=== PATIENT | female | born 2000 | race Caucasian/White ===

== ENCOUNTER 2025-07-02 14:39 | Inpatient (IN) | payer MEDICAID, SELFPAY ==
[2025-07-02 15:01] VITALS: BP 130/65; PULSE 90; RESP 16; TEMP 36.8; O2SAT 98
--- OUTSIDE RECORDS SUMMARY | 2025-07-02 15:16 | XMS_ITS | Clinical Summary ---
Author Organization [facility] Address [address] [place] [address] Phone Care Team Providers Care Lead Rider Name Role Phone Ysabel Angelo NP Primary Care Provider [phone] Allergies Active Allergy Reactions Criticality Noted Date Comments Hydroxyzine Unknown Medium 04/05/2021 Other Reaction(s): Unknown/Patient and Family Unable to Define Heartburn, discomfort Heartburn, discomfort [place] Medium 06/13/2020 Other Reaction(s): Dyskinesia/Dystonia Lurasidone Medium 06/13/2020 Other Reaction(s): Dyskinesia/Dystonia Quetiapine Unknown Medium 11/10/2023 Risperidone Unknown Medium 12/24/2023 Medications cariprazine (Vraylar) 1.5 mg capsule Active traZODone (DESYREL) 100 mg tablet Take 1 tablet (100 mg total) by mouth once daily as needed. 07/10/2024 Active buPROPion XL (WELLBUTRIN XL) 150 mg 24 hr tablet Take 1 tablet (150 mg total) by mouth 1 (one) time each day in the morning. 02/23/2024 Active cholecalciferol (VITAMIN D-3) 1,250 mcg (50,000 unit) capsule TAKE 1 CAPSULE BY MOUTH 1 TIME A WEEK Active EPINEPHrine (EPIPEN) 0.3 mg/0.3 mL injection Active folic acid (FOLVITE) 1 mg tablet Take 1 tablet (1,000 mcg total) by mouth 1 (one) time each day. Active propranoloL (INDERAL) 10 mg tablet Active glecaprevir-pib rentasvir 100-40 mg tablet Take 3 tablets by mouth 1 (one) time each day. 168 tablet 04/12/2025 06/07/20 25 Active Problems Problem Noted Date Diagnosed Date Depression 12/10/2024 Assessment & Plan (12/10/2024 12:34 PM EST): Ceci was counseled on therapy and medication options. She expressed concerns about having to wait to get into behavioral health treatment. We discussed following up with [facility] in [place] for walk-in Behavioral Health access. She is agreeable to follow up with [facility]. She is reluctant to start medication until establishing care for mental health. She states that medication in the past has significantly affected her but remains open to starting on something new with behavioral health. Orders: Ambulatory referral to Behavioral Health; Future Alcohol abuse 12/10/2024 Encounters Date Type Department Care Team Description 05/17/2025 Telephone Infectious Disease - [facility] [address] [place] [address] Jessie Bedoya MA from Last 3 Months Immunizations Name Administration Dates Next Due DTaP (Infanrix) 6wks to less than 7yo ,01/12/2002,04/07/2001,2000,2000 H1N1 All Forms 11/14/2009 Hep B, Unspecified 05/29/2001,2000, 000 Hepatitis A Pediatric (Havri x; Vaqta) 12mo to less than 19yo 11/14/2009 Hib (HbOC) 01/12/2002, 1,01/27/2001,2000 IPV Inactivated polio (Ipol) 6wks and older 10/06/2004,10/02/2001,01/27/2001,2000 Influenza trivalent, with preservative (Fluzone; Afluria) 6mo and older 11/08/2006 MMR, measles mumps and rubel la Live (Priorix; M-M-R II) 12mo and older 10/06/2004,01/12/2002 PPD Test 07/06/2024,12/26/2023,11/10/2023 Pneumococcal Conjugate Vacci ne, 7 Valent 01/12/2002,04/07/2001,01/27/2001,2000 Tdap Tetanus diptheria acell ular pertussis (Boostrix; Adacel) 7yo and older 03/19/2022 Varicella live (Varivax) 12m o and older 11/14/2009,10/02/2001 Family History Medical History Relation Name Comments Bipolar disorder Sister Relation Name Status Comments Sister Social History Tobacco Use Types Packs/Day Years Used Date Smoking Tobacco: Every Day Cigarettes Tobacco Cessation:Ready to Q uit: Not Asked; Counseling Given: Not Answered Alcohol Use Standard Drinks/Week Comments Yes 3 (1 standard drink = 0.6 oz pur e alcohol) Rum Comments Unknown Sex and Gender Information Value Date Recorded Sex Assigned at Not on file Legal Sex Female 2:09 PM EST Gender Identity Not on file Sexual Orientation Not on file Obstetrics History Last Filed Vital Signs Vital Sign Reading Time Taken Comments Blood Pressure 120/80 03/08/2025 10:16 AM EDT Pulse 104 03/08/2025 10:16 AM EDT Temperature 36.1 C (97 F) 03/08/2025 10:16 AM EDT Respiratory Rate 16 03/08/2025 10:16 AM EDT Oxygen Saturation 98% 03/08/2025 10:16 AM EDT Inhaled Oxygen Concentration - - Weight 68.8 kg (151 lb 9.6 oz) 01/10/2025 10:52 AM EST Height 162.6 cm (5' 4 ) 01/10/2025 10:52 AM EST Body Mass Index 26.02 01/10/2025 10:52 AM EST Plan of Treatment Health Maintenance Due Date Last Done Comments Pneumococcal Vaccine: Pediatrics (0 to 5 Years) and At-Risk Patients (6 to 49 Years) (1 of 1 - PPSV23) 2006 01/12/2002, 04/07/2001, 01/27/2001, Additional history exists Hepatitis A Vaccines (2 of 2 - Risk 2-dose series) 05/15/2010 11/14/2009 HPV Vaccines (1 - 3-dose series) 2015 Cervical Cancer Screening: Pap Smear 2021 Gonorrhea/Chlamydia Screening 02/08/2023 02/08/2022 COVID-19 Vaccine ( season) 2024 Social Influencers of Health Screening 12/03/2024 Cholesterol Screening (Lipid Panel) 01/10/2030 01/10/2025, 12/14/2024 DTaP,Tdap,and Td Vaccines (7 - Td or Tdap) 03/19/2032 03/19/2022, 10/06/2004, 01/12/2002, Additional history exists Hepatitis B Vaccines Completed 05/29/2001, 2000, 2000 HIB Vaccines Completed 01/12/2002, 03/28, 01/27/2001, Additional history exists IPV Vaccines Completed 10/06/2004, 03/2001, 01/27/2001, Additional history exists MMR Vaccines Completed 10/06/2004, 01/12/2002 Influenza Vaccine Discontinued 11/14/2009, 11/08/2006 Varicella Vaccines Completed 11/14/2009, 10/02/2001 Depression Screening Completed 12/03/2024 HIV Screening Completed 03/08/2025, 12/28/2023 Hepatitis C Screening Completed 03/08/2025 , 03/08/2025, 01/10/2025, Additional history exists Meningococcal ACWY Vaccine Aged Out N o longer eligible based on patient's age to complete this topic Meningococcal B Vaccine Aged Out No l onger eligible based on patient's age to complete this topic RSV Immunization Patients Under 20 months Aged Out No longer eligible based on patient's age to complete this topic Procedures Procedure Name Priority Date/Time Associated Diagnosis Comments HEPATITIS C VIRUS QUANTITATIVE PCR Routine 03/08/2025 10:46 AM EDT Chronic hepatitis C without hepatic coma (CMS/HCC V24, CMS/HCC V28) HIV 1, 2 ANTIBODY, P24 ANTIGEN WITH REFLEX TO DIFFERENTIATION Routine 03/08/2025 10:46 AM EDT Chronic hepatitis C without hepatic coma (CMS/HCC V24, CMS/HCC V28) LIPID PANEL Routine 01/10/2025 11:17 AM EST Elevated lipids from Last 3 Months or Most Recently Relevant to Health Maintenance Results * HIV 1,2 antibody, p24 antigen with reflex to differentiation (03/08/2025 10:46 AM EDT) HIV Combo AB/AG Negative Negative LAB CHEMISTRY METHOD 03/08/2025 10:48 PM EDT [facility] Blood Venous blood specimen / Unknown Venipuncture / Unknown 03/08/2025 10:46 AM EDT 03/08/2025 4:12 PM EDT Narrative [facility] - 03/08/2025 10:48 PM EDT Nonreactive result does not rule out HIV infection. us Omid Cesar MD LAB BLOOD ORDERABLES Final Resu lt [facility] [address] [place] [address], [place] [phone] * (ABNORMAL) Hepatitis C virus quantitative molecular study (03/08/2025 10:46 AM EDT) Hepatitis C Virus RNA Qualitative DETECTED( A) Not detected IU/mL 03/11/2025 1:02 PM EDT [facility] Hepatitis C Virus RNA Quantitative 544,072(H ) <12 IU/mL 03/11/2025 1:02 PM EDT [facility] Log Hepatitis C Virus RNA 5.74(H) <1.08 Log (10) IU/mL 03/11/2025 1:02 PM EDT [facility] Comment: This procedure utilizes a real-time polymerase chain reaction test from [employer]. The amplification target is a conserved region of the HCV genome. The lower limit of quantitation is 12 IU/mL (1.08 Log IU/mL) and the upper limit of quantitation is 100 million IU/mL (8.00 Log IU/mL). The qualitative limit of detection is 12 IU/mL (1.08 Log IU/mL). Specimens reported as DETECTED but <12 IU/mL contain detectable levels of hepatitis C RNA but the viral load is below the limit of quantitation. A Not detected result does not rule out infection. Test performed at [facility], [address] , [place] [address] Tish Murphy MD, PhD - [employer] Blood Venous blood specimen / Unknown Venipuncture / Unknown 03/08/2025 10:46 AM EDT 03/08/2025 11:37 AM EDT us Omid Cesar MD LAB BLOOD ORDERABLES Final Resu lt [facility] [address] [place] [address] * (ABNORMAL) Lipid panel (01/10/2025 11:17 AM EST) [facility] Cholesterol 182 0 - 200 mg/dL LAB CHEMISTRY METHOD 01/10/2025 2:06 PM EST [facility] Triglycerides 156(H) <150 mg/dL LAB CHEMISTRY METHOD 01/10/2025 2:06 PM EST [facility] HDL 38 35 - 80 mg/dL LAB CHEMISTRY METHOD 01/10/2025 2:06 PM EST [facility] LDL Calculated 113 50 - 130 mg/dL LAB CHEMISTRY METHOD 01/10/2025 2:06 PM EST [facility] VLDL Cholesterol Negro 31.2 mg/dL LAB CHEMISTRY METHOD 01/10/2025 2:06 PM EST [facility] Comment:No established refer ence range. Blood Venous blood specimen / Unknown Venipuncture / Unknown 01/10/2025 11:17 AM EST 01/10/2025 11:17 AM EST us Ysabel Angelo NP LAB BLOOD ORDERABLES Final Result [facility] [address] [place] [address], [place] [phone] from Last 3 Months or Most Recently Relevant to Health Maintenance Insurance [place] Care Teams Lead Rider Relationship Specialty Start Date End Date Ysabel Angelo NP [address] [facility] [address] [place] [address] PCP - General 12/10/24
--- OUTSIDE RECORDS SUMMARY | 2025-07-02 15:16 | XMS_ITS | Clinical Summary ---
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 MARCOS URINE ORDERABLES Final Result [facility] [address] [place] [address], [facility] [address] [place] [address] * Complete Blood Count, with Differential (06/13/2025 4:46 PM EDT) Only the most recent of2 resultswithin the time period is included. [facility] White Blood Cell Count 8.8 4.0 - 11.0 Thou/uL 06/13/2025 4:54 PM EDT [facility] Platelet Count 234 150 - 450 Thou/uL 06/13/2025 4:54 PM EDT [facility] Hemoglobin 13.6 11.7 - 15.7 g/dL 06/13/2025 4:54 PM EDT [facility] Hematocrit 40.2 35.0 - 47.0 % 06/13/2025 4:54 PM EDT [facility] Red Blood Cell Count 4.45 4.00 - 5.40 Mil/uL 06/13/2025 4:54 PM EDT [facility] MCV 90 80 - 100 fL 06/13/2025 4:54 PM EDT [facility] MCH 30.6 26.0 - 34.0 pg 06/13/2025 4:54 PM EDT [facility] MCHC 33.8 30.0 - 36.0 g/dL 06/13/2025 4:54 PM EDT [facility] RDW 13.2 11.5 - 14.5 % 06/13/2025 4:54 PM EDT [facility] MPV 10.7 7.5 - 12.5 fL 06/13/2025 4:54 PM EDT [facility] Neutrophils Auto 62.3 % 06/13/20 4:54 PM EDT [facility] Immature Granulocytes 0.2 % 06/13/2025 4:54 PM EDT [facility] Lymphocytes Auto 27.4 % 06/13/20 4:54 PM EDT [facility] Monocytes Auto 7.2 % 06/13/2025 4:54 PM EDT [facility] Eosinophils Auto 2.2 % 06/13/20 4:54 PM EDT [facility] Basophils Auto 0.7 % 06/13/2025 4:54 PM EDT [facility] Abs Neutrophils Auto 5.47 2.00 - 7.50 Thou/uL 06/13/2025 4:54 PM EDT [facility] Abs Immature Granulocytes 0.02 0.00 - 0.10 Thou/uL 06/13/2025 4:54 PM EDT [facility] Abs Lymphocytes Auto 2.40 1.50 - 4.50 Thou/uL 06/13/2025 4:54 PM EDT [facility] Abs Monocytes Auto 0.63 0.20 - 1.50 Thou/uL 06/13/2025 4:54 PM EDT [facility] Abs Eosinophils Auto 0.19 0.00 - 0.70 Thou/uL 06/13/2025 4:54 PM EDT [facility] Abs Basophils Auto 0.06 0.00 - 0.20 Thou/uL 06/13/2025 4:54 PM EDT [facility] Blood Blood specimen / Unknown 06/13/2025 4:46 PM EDT 06/13/2025 4:51 PM EDT Chris MARCOS LAB BLOOD ORDERABLES Final Resu lt [facility] [address] [place] [address], [facility] [address] [place] [address] * Ethanol (06/13/2025 4:46 PM EDT) Only the most recent of2 resultswithin the time period is included. Ethanol, Quantitative, Blood <11 <11 mg/dL 06/13/2025 5:15 PM [facility]T [facility] Comment:* FOR MEDICAL PURPOS ES ONLY * Blood Blood specimen / Unknown 06/13/2025 4:46 PM EDT 06/13/2025 4:51 PM EDT us Chris MARCOS LAB BLOOD ORDERABLES Final Resu lt [facility] [address] [place] [address], [facility] [address] [place] [address] * (ABNORMAL) Comprehensive Metabolic Panel (06/13/2025 4:46 PM EDT) Only the most recent of2 resultswithin the time period is included. [facility] Glucose 131(H) 65 - 99 mg/dL 06/13/2025 5:15 PM EDT [facility] Comment:Fasting: <100 mg/dL, Non-Fasting: <200 mg/dL (ADA 2004) Blood Urea Nitrogen (BUN) 13 8 - 21 mg/dL 06/13/2025 5:15 PM EDT [facility] Creatinine 0.7 0.4 - 1.1 mg/dL 06/13/2025 5:15 PM EDT [facility] eGFR >90 >59 06/13/2025 5:15 PM EDT [facility] Comment:CKD-EPI (2020) in mL /min/1.73 sq meters. Sodium 143 136 - 145 mmol/L 06/13/2025 5:15 PM EDT [facility] Potassium 3.6 3.4 - 5.3 mmol/L 06/13/2025 5:15 PM EDT [facility] Chloride 105 98 - 107 mmol/L 06/13/2025 5:15 PM EDT [facility] CO2 26 22 - 33 mmol/L 06/13/2025 5:15 PM EDT [facility] Calcium 9.0 8.7 - 10.5 mg/dL 06/13/2025 5:15 PM EDT [facility] Alkaline Phosphatase 49 32 - 122 U/L 06/13/2025 5:15 PM EDT [facility] Aspartate Aminotrans (AST) 45 10 - 50 U/L 06/13/2025 5:15 PM EDT [facility] Alanine Aminotrans (ALT) 73(H) 10 - 50 U/L 06/13/2025 5:15 PM EDT [facility] Bilirubin, Total 0.3 0.2 - 1.0 mg/dL 06/13/2025 5:15 PM [facility] Protein, Total 6.5 6.3 - 8.3 g/dL 06/13/2025 5:15 PM [facility]T [facility] Albumin 3.9 3.5 - 5.0 g/dL 06/13/2025 5:15 PM [facility]T [facility] BUN/Creatinine Ratio 19 10.0 - 25.0 Ratio 06/13/2025 5:15 PM [facility]T [facility] Globulin 2.6 1.5 - 3.9 g/dL 06/13/2025 5:15 PM [facility]T [facility] Albumin/Globulin Ratio 1.5 Ratio 06/13/2025 5:15 PM [facility]T [facility] Anion Gap 12 7 - 17 06/13/2025 5:15 PM EDT [facility] Blood Blood specimen / Unknown 06/13/2025 4:46 PM EDT 06/13/2025 4:51 PM EDT Chris MARCOS LAB BLOOD ORDERABLES Final Resu lt [facility] [address] [place] [address], [facility] [address] [place] [address] * [facility] Advanced Vaginitis Plus, TMA (06/07/2025 11:21 AM EDT) Pathologist [facility] Adv Bacterial Vaginosis (BV), TMA NEGATIVE NEGATIVE [employer] Danika Species NOT DETECTED NOT DETECTED [employer] Danika Glabrata NOT DETECTED NOT DETECTED [employer] Comment: Daniak species C. albicans, C. tropicalis, C. parapsilosis, and/or C. dubliniensis can be detected, but not differentiated, in the Danika spp. result. Trichomonas Vaginalis (TV), TMA NOT DETECTED NOT DETECTED [employer] Chlamydia Trachomatis RNA, TMA NOT DETECTED NOT DETECTED [employer] Neisseria Gonorrhoeae RNA, TMA NOT DETECTED NOT DETECTED [employer] Comment: For additional information, please refer to https://[employer].Coup[employer] Near Me/faq/GMH483 (This link is being provided for information/ educational purposes only.) 06/07/2025 11:2 1 AM EDT 06/07/2025 11:43 PM EDT Ashantidorie Marion APRN LAB AMB MICRO ORDERABLES Amina l Result Performing Organization Address [facility] Co de Phone Number [facility] [address] [place] [address] * (ABNORMAL) Syphilis ESTRADA reflex RPR Titer & TPPA (06/07/2025 11:21 AM EDT) Syphilis ESTRADA EQUIVOCAL (A) NEGATIVE [employer] Comment: Verified by repeat analysis. The specimen exhibited low-level reactivity, indicating possible T. pallidum infection. Testing therefore progressed to the non-treponemal RPR assay. RPR Screen W/Refl titer NON-REACT YOANDY NON-REACTIV E [employer] Comment: This result may indicate that the detection of T. pallidum antibody represents a previously treated case of syphilis, or was falsely positive. Alternatively, the RPR result may be falsely negative, as has been documented in some cases of primary syphilis and late latent syphilis. Testing therefore progressed to the T. pallidum Particle Agglutination assay. Treponema pallidum (TP-PA) NON-REACT YOANDY NON-REACTIV E [employer] Comment: This result suggests that the detection of T. pallidum antibody by immunoassay was falsely positive. Testing of a second specimen, collected 2-4 weeks after this specimen, is recommended if the index of suspicion for T. pallidum infection is high. Blood Blood specimen / Unknown 06/07/2025 11:21 AM EDT 06/07/2025 11:18 PM EDT Ashanti Marion APRN LAB BLOOD ORDERABLES Final Re sult Performing Organization Address [facility]/ZIP Co de Phone Number [facility] [address] [place] [address] * HIV 1/2 Ag/Ab CMIA Reflex to Confirmation (06/07/2025 11:21 AM EDT) Only the most recent of2 resultswithin the time period is included. HIV Final Interpretation [employer] Comment: HIV Negative HIV-1 antigen and HIV-1/HIV-2 antibodies were not detected. There is no laboratory evidence of HIV infection. HIV Ag/Ab, 4th Gen NON-REACT YOANDY NON-REACT YOANDY [employer] Blood Blood specimen / Unknown 06/07/2025 11:21 AM EDT 06/07/2025 11:18 PM EDT Ashanti Marion APRN LAB BLOOD ORDERABLES Final Re sult [facility] [address] [place] [phone] * (ABNORMAL) HEPATITIS C VIRUS (HCV) ANTIBODY (06/07/2025 11:21 AM EDT) Hepatitis C Antibody REACTIVE( A) NON-REACTIV E [employer] Comment: Based on this result, the sample will be tested for HCV RNA by a Nucleic Acid Amplification Test (NAAT) to determine if the patient has a current active infection. HCV RNA (IU/mL) 1,480,000 (H) NOT DETECTED IU/mL [employer] HCV RNA (log10) 6.17(H) NOT DETECTED Log IU/mL [employer] Comment: HCV RNA was detected. This result provides laboratory evidence of a current active HCV infection. Comment [employer] Comment: For more information on this test, go to: http://education.Coupons Near Me/faq/DFK06u7 (This link is being provided for informational/ educational purposes only.) This assay is intended for use as an aid in the diagnosis of HCV infection and the management of HCV infected patients undergoing anti-viral therapy. Blood Blood specimen / Unknown 06/07/2025 11:21 AM EDT 06/07/2025 11:18 PM EDT us Ashanti Marion APRN LAB BLOOD ORDERABLES Final Re sult [employer] [address] [place] [phone] * POCT , Urine (06/07/2025 10:57 AM EDT) Pathologist [facility] Preg Test, Ur Negative Negative Lot Number [id number] [employer] Pass Pass Urine 06/07/2025 10:5 7 AM EDT Ashanti Marion TENT FINISHER POINT OF CARE TEST ORDERABLES Final Result * GC/Chlamydia RNA by TMA (06/02/2025 12:37 AM EDT) [facility] Chlamydia RNA by TMA Negative Negative 06/03/2025 2:35 PM EDT [facility] GC RNA by TMA Negative Negative 06/03/2025 2:35 PM EDT [facility] Urine Voided urine specimen / Unknown 06/02/2025 12:37 AM EDT 06/02/2025 1:04 AM EDT us Chris Emanuel MD MICROBIOLOGY - GENERAL ORDERABLE S Final Result Performing Organization Address City/[facility]/ZIP Co de Phone Number [facility] [address] [employer] [place] [address], [place] * Syphilis Antibodies, reflex to RPR Titer (06/01/2025 11:56 PM EDT) [facility] Syphilis Antibody Reflex RPR Titer and TPA Nonreactive Nonreactive 06/03/2025 12:44 PM EDT [facility] Blood Blood specimen / Unknown 06/01/2025 11:56 PM EDT 06/02/2025 12:05 AM EDT us Chris Emanuel MD LAB BLOOD ORDERABLES Final Resul t [facility] [address] [place] [phone], [place] * Hepatitis B Surface Antigen Screen, Reflex Confirmation (06/01/2025 11:56 PM EDT) Hepatitis B Surface Ag Screen Nonreactive Nonreactive 06/03/2025 10:59 AM EDT [facility] Blood Blood specimen / Unknown 06/01/2025 11:56 PM EDT 06/02/2025 12:05 AM EDT Chris Emanuel MD LAB BLOOD ORDERABLES Final Resul t Performing Organization Address City/[facility]/ZIP Co de Phone Number [facility] [address] [place] [address], * (ABNORMAL) Hepatitis B Surface Antibody (06/01/2025 11:56 PM EDT) Hepatitis B Surface Antibody Non-React yoandy (Not Immune)(A ) Reactive (Immune) 06/03/2025 12:47 PM EDT [facility] Blood Blood specimen / Unknown 06/01/2025 11:56 PM EDT 06/02/2025 12:05 AM EDT Chris Emanuel MD LAB BLOOD ORDERABLES Final Resul t Performing Organization Address [facility] Co de Phone Number [facility] [address] [place] [address], from Last 3 Months Additional Health Concerns Active Problems Noted Date Diagnosed Date Emotional Dysregulation 05/25/[address] [facility] OFFICE OF [facility] Advance Directives * Full Code (Latest Code Status on File) Date Activated Date Inactivated Comments 07/04/2024 2:13 PM 06/01/2025 9:39 PM * Full Code Date Activated Date Inactivated Comments 06/05/2024 7:10 PM 06/13/2024 1:45 PM * Full Code Date Activated Date Inactivated Comments 12/23/2023 2:27 PM 04/17/2024 8:29 PM * Full Code Date Activated Date Inactivated Comments 12/22/2023 10:09 AM 12/23/2023 1:57 PM * Full Code Date Activated Date Inactivated Comments 04/03/2021 3:21 PM 02/08/2022 7:45 PM Care Teams Cardiac Rehabilitation Specialist Relationship Specialty Start Date End Date Pcp, No PCP - General General Medicine 06/12/24
--- OUTSIDE RECORDS SUMMARY | 2025-07-02 15:16 | XMS_ITS | Clinical Summary ---
Author Organization [facility] Address [address] [place] [address] Care Team Providers Care Director Design Name Role Phone Unavailable Primary Care Provider Unavailabl e Source Comments PLEASE NOTE, if this patient is a minor, it may be UNLAWFUL to discuss sensitive information that is contained in these records (such as FAMILY PLANNING, MENTAL HEALTH or SUBSTANCE ABUSE) with the minor patient's parent or other person without the patient's specific authorization.[facility] Allergies Active Allergy Reactions Criticality Noted Date Comments Hydroxyzine Medium 04/05/2021 Other Reaction(s): Unknown/Patient and Family Unable to Define Heartburn, discomfort Esperance Medium 06/13/2020 Other Reaction(s): Dyskinesia/Dystonia Lurasidone Medium 06/13/2020 Other Reaction(s): Dyskinesia/Dystonia Quetiapine 11/10/2023 Medications nicotine (NICODERM, STEP 1) 21 mg/[address] 1 Patch onto the skin once daily (every 24 hours) 7 Patch 3 Active naloxone (NARCAN) 4 mg/actuation nasal sprayIndication s:Severe opioid use disorder ([facility]) Place 1 [employer] into the nostril(s) 1 (one) time as needed for opioid reversal (suspected overdose) for up to 1 dose See package for Opioid Overdose Response Instructions 2 Each 3 Active Active Problems Problem Noted Date Diagnosed Date Opioid use disorder, severe, dependence ([facility]) 11/10/2023 Bipolar disorder ([facility]) 11/10/2023 Resolved Problems Problem Noted Date Diagnosed Date Resolved Date Episodic mood disorder ([facility] V24) 02/09/2022 11/10/2023 Cigarette nicotine dependenc e without complication 04/17/2021 11/10/2023 Overview (11/10/2023): Last Assessment & Plan: Type: chronic illness - stable Status: symptomatic, improving, patient's apparent stage of change: Preparation Drug induced akathisia 04/13/202111/10 Primary insomnia 04/13/2021 11/10/2023 Overview (11/10/2023): Last Assessment & Plan: Type: chronic illness - stable Status: well-controlled, responding to treatment 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 in controlled environment 04/06/2021 11/10/2023 Overview (11/10/2023): Last Assessment & Plan: Type: chronic illness - stable Status: well-controlled, asymptomatic, maintains sobriety Bipolar 1 disorder, manic, f ull remission ([facility]) 04/03/2021 11/10/2023 Overview (11/10/2023): Last Assessment & Plan: Type: chronic illness - stable Status: well-controlled, responding to treatment, improved sedation with adjustment in admin Suicide attempt ([facility]) 06/16/2020 11/10/2023 Immunizations Immunization Administration Dates Next Due PPD 11/10/2023 Family History Medical History Relation Name Comments No Known Problems Father No Known Problems Mother Relation Name Status Comments Father Mother Social History Tobacco Use Types Packs/Day Years Used Date Smoking Tobacco: Every Day Cigarettes Tobacco Cessation:Ready to Q uit: Not Asked; Counseling Given: Not Answered Social Connections Answer Date Recorded Connectedness 0 08/18/2024 Financial Resource Strain Answer Date R ecorded Financial Resource Strain 0 2022 Stress Answer Date Recorded Stress 0 11/10/2023 Physical Activity Answer Date Recorded Physical Activity 0 11/10/2023 Food Insecurity Answer Date Recorded Food 0 08/23/2024 Transportation Needs Answer Date Record ed Transportation 0 11/10/2023 Housing Stability Answer Date Recorded Housing 0 11/10/2023 Safety and Environment Answer Date Jaron rded Safety 0 11/10/2023 Utilities Answer Date Recorded Utilities 0 11/10/2023 Employment Answer Date Recorded Stress 0 08/18/2024 Comments Unknown Sex and Gender Information Value Date Recorded Sex Assigned at Female 01/23/2024 11:59 AM PST Legal Sex Female 12:36 AM PST Gender Identity Female 05/26/2020 6:21 AM PDT Sexual Orientation Straight 05/26/2020 6: 21 AM PDT Last Filed Vital Signs Vital Sign Reading Time Taken Comments Blood Pressure 114/77 11/13/2023 9:44 AM EST Pulse 97 11/13/2023 9:44 AM EST Temperature 36.7 C (98.1 F) 11/13/2023 9:44 AM EST Respiratory Rate 17 11/13/2023 9:44 AM EST Oxygen Saturation 93% 11/13/2023 9:44 AM EST Inhaled Oxygen Concentration - - Weight 63 kg (139 lb) 11/10/2023 9:54 AM EST Height 160 cm (5' 3 ) 11/10/2023 9:54 AM EST Body Mass Index 24.62 11/10/2023 9:54 AM EST Plan of Treatment Health Maintenance Due Date Last Done Comments HPV Screening 2000 Hepatitis C Screening 2000 Pap + HPV 2000 Tobacco Screening 2000 Chlamydia Screening 2013 Gonorrhea Screening 2013 Imm-HPV (1 - 3-dose series) 2015 Relationship Safety Screening/Counseling 2015 Imm-Hepatitis B (1 of 3 - 19 + 3-dose series) 2019 Imm-Pneumococcal (1 of 2 - PCV) 2019 01/12/2002, 04/07/2001, 01/27/2001, Additional history exists Cervical Cancer Screening 2021 Pap Smear 2021 [id number] ( season) 2024 Tobacco Cessation Counseling (#1) 11/09/2024 Anxiety Screening 11/11/2024 11/11/2023 Alcohol and Drug Screen 11/28/2024 Depression Annual Screen 11/28/2024 11/10/2023 Imm-Influenza (#1) 2025 11/08/2006 Hypertension Screening (#1) 11/12/2026 Imm-DTaP/Tdap/Td (7 - Td or Tdap) 03/19/2032 03/19/2022, 10/06/2004, 01/12/2002, Additional history exists Imm-Varicella Completed 11/14/2009, 10/02/2001 HIV Screening Completed 06/08/2024, 06/30/2021 Cervical Ablation/Cold-Knife Conization Discontinued Cervical Cryotherapy Discontinued Colposcopy Discontinued Endometrial Biopsy Discontinued Excision/Leep Discontinued HPV Genotyping Discontinued Vaginal Pap Discontinued Vulvoscopy Discontinued Insurance [place] MEDICA[place] Member Subscriber Plan / Payer (Ef fective 2020-Present) Name:Megan Montelongo Relation to Subscriber:Self Name:Megan Monteolngo Payer ID:[id number] Group ID:Not on file Type:Medicaid Address: [facility] [address] [place] [phone]
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
--- NOTE | 2025-07-02 15:40 | P.HPPS_ITS ---
HPI Date of Service: 07/02/25 Chief Complaint: mental health crisis HPI Narrative: per OSH crisis eval, pt was confronted at a store for shoplifting, PD arrived. pt informed PD that she was very depressed and no one helps her with her depression, so they brought her to ED. she denied SI/HI/AVH in ED. she was apparently generally uncooperative with eval in ED. utox was negative aside from buprenorphine. nevertheless, she was inexplicably found inpatient level of care and referred to [facility], which expedited her admission. on admission to [facility] pt was irritable, labile, demanding, and petulant. she threw or kicked items several times in MD's presence, including a small brown bag given to her by the hospital which contained her toiletries, as well as this advertising copywriter's pen. she refused to answer questions and acted as if interviewers were stupid for asking them. she demanded a shower first and foremost. she requested ativan and nicotine patch. she denied safety concerns. after a broef period she stopped answering MD's questions. Past Psychiatric History: reorts Dx of bipolar, PTSD, ADHD. h/o multiple prior hospitalizations. unknown SA, SIB, outpt Hx. Medical Evaluation Reviewed: Yes PMFSH Narrative: reports NICK Hx - i snore. denies using CPAP: i'm poor. Family History: unknown Social History: recently with teen challenge in [place], [place], but left. now living in a fci in [facility]. poor social supports - some support from grandmother. mother in skilled nursing. 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 Substance History: reports h/o cocaine, opioid, cannabis use disorder. Trauma History: endorses h/o trauma but will not elaborate. Diagnostics Vital Signs (24Hr): Vital Signs - 24 hr 07/02/25 15:01 Temperature 98.2 F Pulse Rate 90 Respiratory Rate 16 Blood Pressure 130/65 Pulse Oximetry 98 Oxygen Delivery Method Room Air Meds/Allergies Allergies Allergies Allergy/AdvReac Type Severity Reaction Status Date / Time No Known Allergies Allergy Verified 07/02/25 15:07 Mental Status Exam Mental Status Exam Narrative: hospital attire, disheveled, intermittent agitation. not cooperative. speech nml rate, decr amount, incr loudness, decr latency. condescending, flippant, abrasive manner. thoughts linear and logical. affect normo-intense, labile. mood angry. denies SI/SIBI/HI/AVH. Assessment & Plan Assessment & Plan (1) Opioid use disorder: Status: Acute Code(s): F11.90 - Opioid use, unspecified, uncomplicated (2) Cocaine use disorder: Status: Acute Code(s): F14.10 - Cocaine abuse, uncomplicated (3) Personality disorder: Status: Acute Code(s): F60.9 - Personality disorder, unspecified Plan behavior c/w personality disorder and substance use disorder. not suggestive of danni or psychosis. PTSD Dx likely, but unable to Dx at present. ativan 2 mg PRN agitation for now. begin to increase interval and decrease dose tomorrow. NRT per pt request. CIWA with ativan for 24H, then DC if not needed, due to report of polysubstance use and poor historian. utox benzo and alcohol NEG, however. comfort meds for opioid withdrawal. urine bupe POS. pt reports last opioids were bupe from detox several weeks ago. supportive care otherwise, attempt to engage and establish rapport moving forward. Patient educated on: diagnosis, medication risk/benefits and substance abuse Reason for continued inpatient stay Substantial Risk for: inability to function Statement Statement: I have reviewed the history and physical and performed a pertinent examination on my patient. No changes have occurred unless specified. If the History and Physical was not performed prior to admission, the Hospitalist's service will be consulted for completing the admission physical. Time Spent With Patient Time: Total time managing care of this patient today __55__ minutes.
[2025-07-02] MEDS: Nicotine 21 MG PATCH.TD24 TRANSDERMA (15:43)
--- NOTE | 2025-07-02 16:30 | PC.ADMIT ---
Megan is a 24 YO [place]an speaking female. She arrived on the unit at 1453 via ambulance stretcher. She was transported from [facility] where she was in [facility] ED. Per crisis report, pt was in the community and had the police called on her d/t stealing cigarettes. When the police arrived, pt reported depression to them and then they called an ambulance. Pt reports that she has been homeless since the age of 17. Per crisis report, her mother is in long term and her sister told her to be a prostitute when she reached out for support. Pt reports extensive trauma, however, was unwilling to disclose any details. I will do any drug that someone puts in front of me. Crack, cocaine, fentanyl, ETOH, THC. It doesn't matter to me, if I I . Pt toxicology screening is positive for Buprenorphine. Pt accepted a referral for addiction consult. Pt has no services set up and this suboxone was from the street, not a clinic. Pt placed on CIWA Q4-while awake. 1600 assessment not completed, as pt received Ativan 2mg prn, for agitation just previous to assessment time. During admission assessment, pt was impulsive and had low frustration threshold: she kicked her toiletries and threw another item, yelled, and punched the pillow. She later apologized for these actions. Pt placed on 5 minute safety checks d/t this behavior. Pt repeatedly asks when can I shower? She has a flat affect most of the time and sometimes has an angry affect. Skin check revealed several medium sized tattoos-no concerns of infection anywhere.
[2025-07-02 20:32] VITALS: BP 104/60; PULSE 120; RESP 16; TEMP 36.9; O2SAT 98
[2025-07-03 03:13] VITALS: BP 118/63
[2025-07-03 07:44] LABS: MANUAL DIFF FLAG NO
[2025-07-03 07:47] LABS: Hematocrit 40.2 % (37.0-47.0); Hemoglobin 13.9 g/dl (12.0-16.0); Imm Gran Abs Auto 0.02 X10*3/uL (0.00-0.03); Imm Gran Pct Auto 0.3 % (0.0-0.4); Lymphocytes Absolute Auto 2.6 X10*3/uL (1.2-4.9); Mean Corpuscular HGB Conc 34.6 g/dl (31.0-35.0); Mean Corpuscular Hemoglobin 30.1 pg (27.0-33.0); Mean Corpuscular Volume 87.0 fL (80.0-98.0); NRBC Abs Auto 0.000 X10*3/uL (0.0-0.012); NRBC Pct Auto 0.0 /100WBC (0.0-0.2); Platelet Count 262 X10*3/uL (160-400); Red Blood Count 4.62 X10*6/uL (4.20-5.50); White Blood Count 7.8 X10*3/uL (4.8-10.8)
[2025-07-03 08:11] LABS: Alanine Aminotransferase 107 U/L (0-31); Albumin Level 4.4 g/dL (3.5-5.0); Alkaline Phosphatase 50 U/L (39-117); Anion Gap 12 (12-20); Aspartate Amino Transferase 65 U/L (5-31); Blood Urea Nitrogen 13 mg/dL (9-16); Calcium 9.6 mg/dL (8.4-10.2); Carbon Dioxide 26 mmol/L (22-29); Chloride 106 mmol/L (96-108); Cholesterol 153 mg/dL (<200); Estimated Glomerular Filt Rate > 60; HDL Cholesterol 40 mg/dL (>40); Potassium 4.6 mmol/L (3.3-5.1); Sodium 139 mmol/L (135-145); Total Protein 7.3 g/dL (6.5-8.0); Triglycerides 78 mg/dL (<150)
[2025-07-03] MEDS: Nicotine 21 MG PATCH.TD24 TRANSDERMA (08:21)
[2025-07-03 08:26] LABS: Free T4 (Free Thyroxine) 1.17 ng/dL (0.71-1.85); Thyroid Stimulating Hormone 3.20 uIU/mL (0.32-4.0)
[2025-07-03 08:32] LABS: Hemoglobin A1C 140.7502 umol/L; Total Hemoglobin (HGBA1C) 3649.3635 umol/L
[2025-07-03 08:39] LABS: Folate 9.7 ng/mL (> or = 4.0); Vitamin B12 487 pg/mL (200-900)
--- NOTE | 2025-07-03 11:49 | HO.PSYCHPN ---
Subjective Subjective Date of Service: 07/03/25 Reason For Visit: mental health crisis Subjective Notes: Conditional Voluntary Healthcare Proxy: No Guardianship: No Medical Problems Affecting Mental Status: No Interim History: Medical record and nursing notes reviewed; case discussed during rounds with team/nursing staff, and met with patient for supportive therapy/psychoeducation, as well as medication management. Patient was sleeping for the 3-4 hours, was irritable, but medication compliant, received trazodone and hydroxyzine. He had she does not like the hydroxyzine. Discussed with patient regarding medications for reports bipolar diagnosed when she was 19 years old. Observed visible, attempted groups, more pleasant, and cooperative. So far no behavior issues, denies substance use, deny withdra wal symptoms, was given Suboxone when she was at a detox. Not currently. Denies any other symptoms. She is aware the clonidine is available for anxiety. No safety concerns Medication Compliance: Yes Side effects from medications: No Attending Groups: Yes Review of Systems Acute medical concerns: No Medical Review of Systems: unchanged Review of Systems Review of Systems Constitutional: Denies fatigue and Denies fever(s) Cardiovascular: Denies chest pain and Denies dyspnea Respiratory: Denies dyspnea Gastrointestinal: Denies abdominal pain Psychiatric: denies suicidal ideation Endocrine: Denies fatigue Yes all other systems are reviewed and are negative Mental Status Exam Mental Status Exam Narrative: Casual attire, unkempt hair,,underiline irritability but pleasant and cooperative. Speech WNL, normal rate, thoughts linear and logical. affect normo-intense, can be labile. mood great , can be irritable. Denies SI/SIB/HI/AVH. Fair insight and judgment. Diagnostics Vital Signs (24Hr): Vital Signs - 24 hr 07/02/25 15:01 07/02/25 20:32 07/03/25 03:13 Temperature 98.2 F 98.5 F Pulse Rate 90 120 H Respiratory Rate 16 16 Blood Pressure 130/65 104/60 118/63 Pulse Oximetry 98 98 Oxygen Delivery Method Room Air Room Air Labs 07/03/25 07:37 07/03/25 07:37 Labs: Laboratory Results - last 48 hr 07/03/25 07:37 WBC 7.8 RBC 4.62 Hgb 13.9 Hct 40.2 MCV 87.0 MCH 30.1 MCHC 34.6 RDW 12.4 Plt Count 262 MPV 10.5 Immature Gran % (Auto) 0.3 Neut % (Auto) 58.6 Lymph % (Auto) 32.7 [place] % (Auto) 6.4 Eos % (Auto) 1.5 Baso % (Auto) 0.5 Lymph # (Auto) 2.6 [place] # (Auto) 0.5 Eos # (Auto) 0.1 Baso # (Auto) 0.0 Abs Immat Gran (auto) 0.02 Absolute Neuts (auto) 4.6 Absolute Nucleated RBC 0.000 Nucleated RBC % (auto) 0.0 Sodium 139 Potassium 4.6 Chloride 106 Carbon Dioxide 26 Anion Gap 12 BUN 13 Creatinine 0.78 Estim Creat Clear Calc TNP Estimated GFR > 60 Random Glucose 96 Estimat Average Glucose 117 Hemoglobin A1c % 5.7 Calcium 9.6 Total Bilirubin 0.4 Direct Bilirubin 0.1 AST 65 H ALT 107 H Alkaline Phosphatase 50 Total Protein 7.3 Albumin 4.4 Triglycerides 78 Cholesterol 153 LDL Cholesterol, Calc 98 HDL Cholesterol 40 L Vitamin B12 487 Folate 9.7 TSH 3.20 Free T4 1.17 Medications Medications Current Medications Acetaminophen (Acetaminophen 325 Mg Tablet) 650 mg PO Q6H PRN PRN Reason: Headache/Pain, Scale 1-10 Al Hydroxide/Mg Hydroxide (Magnesium Hydrox/Alum Hydrox 30 Ml Oral.Susp) 30 ml PO Q6H PRN PRN Reason: Heartburn/Nausea Buspirone HCl (Buspirone Hcl 10 Mg Tablet) 10 mg PO BID DEEJAY Clonidine HCl (Clonidine Hcl 0.1 Mg Tablet) 0.1 mg PO Q4H PRN; Protocol PRN Reason: signs of opioid withdrawal, anxiety Last Admin: 07/03/25 03:13 Dose: 0.1 mg Dicyclomine HCl (Dicyclomine Hcl 10 Mg Capsule) 10 mg PO QIDACHS PRN PRN Reason: spasm Hydroxyzine HCl (Hydroxyzine Hcl 50 Mg Tablet) 50 mg PO Q6H PRN PRN Reason: mild anxiety Ibuprofen (Ibuprofen 600 Mg Tablet) 600 mg PO Q6H PRN PRN Reason: cramps, aches Last Admin: 07/02/25 17:34 Dose: 600 mg Loperamide HCl (Loperamide Hcl 2 Mg Capsule) 2 mg PO Q4H PRN PRN Reason: diarrhea Lorazepam (Lorazepam 1 Mg Tablet) 2 mg PO Q4H PRN PRN Reason: agitation Last Admin: 07/03/25 08:54 Dose: 2 mg Lorazepam (Lorazepam 1 Mg Tablet) 1 mg PO Q2H PRN PRN Reason: CIWA 8-11 Lorazepam (Lorazepam 1 Mg Tablet) 2 mg PO Q2H PRN PRN Reason: CIWA 12-15 Lorazepam (Lorazepam 1 Mg Tablet) 3 mg PO Q2H PRN PRN Reason: CIWA > 15, and call Magnesium Hydroxide (Milk Of Magnesia 30 Ml Oral.Susp) 30 ml PO DAILY PRN PRN Reason: Constipation Nicotine (Nicotine 21 Mg Patch.Td24) 21 mg TRANSDERMA DAILY [facility] Last Admin: 07/03/25 08:21 Dose: 21 mg Nicotine Polacrilex (Nicotine Polacrilex 2 Mg Gum) 4 mg BUCCAL Q2H PRN PRN Reason: Nicotine Cravings Thiamine HCl (Thiamine Hcl 100 Mg Tablet) 100 mg PO DAILY [facility] Last Admin: 07/03/25 08:22 Dose: 100 mg Trazodone HCl (Trazodone Hcl 50 Mg Tablet) 50 mg PO BEDTIME DEEJAY Trazodone HCl (Trazodone Hcl 50 Mg Tablet) 50 mg PO BEDTIME PRN PRN Reason: Insomnia Allergies Allergies Allergy/AdvReac Type Severity Reaction Status Date / Time No Known Allergies Allergy Verified 07/02/25 15:07 Assessment & Plan Assessment & Plan (1) Opioid use disorder: Status: Acute Code(s): F11.90 - Opioid use, unspecified, uncomplicated (2) Cocaine use disorder: Status: Acute Code(s): F14.10 - Cocaine abuse, uncomplicated (3) Personality disorder: Status: Acute Code(s): F60.9 - Personality disorder, unspecified (4) Bipolar disorder, unspecified: Status: Acute Code(s): F31.9 - Bipolar disorder, unspecified Plan behavior c/w personality disorder and substance use disorder. not suggestive of danni or psychosis. PTSD Dx likely, but unable to Dx at present. 07/02/25: ativan 2 mg PRN agitation for now. begin to increase interval and decrease dose tomorrow. NRT per pt request. CIWA with ativan for 24H, then DC if not needed, due to report of polysubstance use and poor historian. utox benzo and alcohol NEG, however. comfort meds for opioid withdrawal. urine bupe POS. pt reports last opioids were bupe from detox several weeks ago. supportive care otherwise, attempt to engage and establish rapport moving forward. 07/03/25: more pleasant and less irritable compare to the report yesterday. She has knowledge regarding previous medication trials. States that she was dx with Bipolar at 19 y.o. Buspar for anxiety, caplyta fo rmood, and trazodone for insomnia worked in the past. Requested to restart on it. Denies issues with filling these meds in the past. She denies SI/SIB/HI/AVH. visible, attended groups and coloring with peers in dinning/activities areas. Hx of not consistent with medicaitons. Per nursing, patient was irritable yesterday. Per SW, no current OP sevices, [place] return to [place]. She does not want rehab as it was not helpful in the past. Wants sober house. Cannot return or stay with sister. Patient has goals for aftercare but they are not realistic and dnot reachable. Potential discharge to half-way once stable. Discontinue CIWA and Ativan PRN per protocol. Add Bipolar, unspecified on treatment plan. CV- 15 min check. Caplyta 42 mg daily at HS. Ordered place for [facility]. Pending result Buspar 10mg BID for anxiety Trazodone 50mg at HS with a RPx1 PRN for insomnia. Patient educated on: diagnosis, medication risk/benefits, substance abuse and therapeutic strategies Informed Consent: understands Reason for continued inpatient stay Substantial Risk for: med/psych decompensation Time Spent With Patient Time: Total time managing care of this patient today ____ minutes.
[2025-07-03 13:36] VITALS: BP 115/63
[2025-07-03 18:37] VITALS: BP 108/72
[2025-07-03 19:10] VITALS: BP 101/58; PULSE 120; RESP 16; TEMP 37.1; O2SAT 98
[2025-07-04 07:35] VITALS: BP 103/49; PULSE 115; RESP 20; TEMP 36.9
[2025-07-04] MEDS: Nicotine 21 MG PATCH.TD24 TRANSDERMA (08:48)
[2025-07-04 10:46] VITALS: BP 123/67; PULSE 90
[2025-07-04] MEDS: Sulfamethox/Trimeth 800/160 TABLET 1 TAB PO ×2 (10:47→20:28)
[2025-07-04 14:47] VITALS: BP 109/60; PULSE 90
--- NOTE | 2025-07-04 15:35 | HO.PSYCHPN ---
Subjective Subjective Date of Service: 07/04/25 Reason For Visit: mental health crisis Interim History: utox from [facility], C&S received by [facility] today. pt informed and will start antibx. asking for caplyta. c/o anxiety, agreeable to start propranolol 10 TID for now. per staff, flat, withdrawn. c/o nightmares. trazodone and clonidine helped with sleep. lots of time on the phone. Mental Status Exam Mental Status Exam Narrative: Casual attire, unkempt hair,,underiline irritability but pleasant and cooperative. Speech WNL, normal rate, thoughts linear and logical. affect normo-intense, can be labile. mood labile can be irritable. Denies SI/SIB/HI/AVH. Fair insight and judgment. Diagnostics Vital Signs (24Hr): Vital Signs - 24 hr 07/03/25 18:37 07/03/25 19:10 07/04/25 07:35 Temperature 98.7 F 98.4 F Pulse Rate 120 H 115 H Respiratory Rate 16 20 Blood Pressure 108/72 101/58 L 103/49 L Pulse Oximetry 98 Oxygen Delivery Method Room Air Room Air 07/04/25 10:46 07/04/25 14:47 Temperature Pulse Rate 90 90 Respiratory Rate Blood Pressure 123/67 109/60 Pulse Oximetry Oxygen Delivery Method Labs 07/03/25 07:37 07/03/25 07:37 Labs: Laboratory Results - last 48 hr 07/03/25 07:37 WBC 7.8 RBC 4.62 Hgb 13.9 Hct 40.2 MCV 87.0 MCH 30.1 MCHC 34.6 RDW 12.4 Plt Count 262 MPV 10.5 Immature Gran % (Auto) 0.3 Neut % (Auto) 58.6 Lymph % (Auto) 32.7 [place] % (Auto) 6.4 Eos % (Auto) 1.5 Baso % (Auto) 0.5 Lymph # (Auto) 2.6 [place] # (Auto) 0.5 Eos # (Auto) 0.1 Baso # (Auto) 0.0 Abs Immat Gran (auto) 0.02 Absolute Neuts (auto) 4.6 Absolute Nucleated RBC 0.000 Nucleated RBC % (auto) 0.0 Sodium 139 Potassium 4.6 Chloride 106 Carbon Dioxide 26 Anion Gap 12 BUN 13 Creatinine 0.78 Estim Creat Clear Calc TNP Estimated GFR > 60 Random Glucose 96 Estimat Average Glucose 117 Hemoglobin A1c % 5.7 Calcium 9.6 Total Bilirubin 0.4 Direct Bilirubin 0.1 AST 65 H ALT 107 H Alkaline Phosphatase 50 Total Protein 7.3 Albumin 4.4 Triglycerides 78 Cholesterol 153 LDL Cholesterol, Calc 98 HDL Cholesterol 40 L Vitamin B12 487 Folate 9.7 TSH 3.20 Free T4 1.17 Medications Medications Current Medications Acetaminophen (Acetaminophen 325 Mg Tablet) 650 mg PO Q6H PRN PRN Reason: Headache/Pain, Scale 1-10 Al Hydroxide/Mg Hydroxide (Magnesium Hydrox/Alum Hydrox 30 Ml Oral.Susp) 30 ml PO Q6H PRN PRN Reason: Heartburn/Nausea Buspirone HCl (Buspirone Hcl 5 Mg Tablet) 15 mg PO BID DEEJAY Clonidine HCl (Clonidine Hcl 0.1 Mg Tablet) 0.1 mg PO Q4H PRN; Protocol PRN Reason: signs of opioid withdrawal, anxiety Last Admin: 07/03/25 18:37 Dose: 0.1 mg Dicyclomine HCl (Dicyclomine Hcl 10 Mg Capsule) 10 mg PO QIDACHS PRN PRN Reason: spasm Ibuprofen (Ibuprofen 600 Mg Tablet) 600 mg PO Q6H PRN PRN Reason: cramps, aches Last Admin: 07/02/25 17:34 Dose: 600 mg Loperamide HCl (Loperamide Hcl 2 Mg Capsule) 2 mg PO Q4H PRN PRN Reason: diarrhea Magnesium Hydroxide (Milk Of Magnesia 30 Ml Oral.Susp) 30 ml PO DAILY PRN PRN Reason: Constipation Nicotine (Nicotine 21 Mg Patch.Td24) 21 mg TRANSDERMA DAILY [facility] Last Admin: 07/04/25 08:48 Dose: 21 mg Nicotine Polacrilex (Nicotine Polacrilex 2 Mg Gum) 4 mg BUCCAL Q2H PRN PRN Reason: Nicotine Cravings Propranolol HCl (Propranolol Hcl 10 Mg Tablet) 10 mg PO TID [facility]; Protocol Last Admin: 07/04/25 14:47 Dose: 10 mg Trazodone HCl (Trazodone Hcl 50 Mg Tablet) 50 mg PO BEDTIME DEEJAY Last Admin: 07/03/25 20:18 Dose: 50 mg Trazodone HCl (Trazodone Hcl 50 Mg Tablet) 50 mg PO BEDTIME PRN PRN Reason: Insomnia Last Admin: 07/04/25 00:32 Dose: 50 mg Trimethoprim/Sulfamethoxazole (Sulfamethox/Trimeth 800/160 Tablet) 1 tab PO Q12H DEEJAY Stop: 07/07/25 10:14 Last Admin: 07/04/25 10:47 Dose: 1 tab Allergies Allergies Allergy/AdvReac Type Severity Reaction Status Date / Time No Known Allergies Allergy Verified 07/02/25 15:07 Assessment & Plan Assessment & Plan (1) Opioid use disorder: Status: Acute Code(s): F11.90 - Opioid use, unspecified, uncomplicated (2) Cocaine use disorder: Status: Acute Code(s): F14.10 - Cocaine abuse, uncomplicated (3) Personality disorder: Status: Acute Code(s): F60.9 - Personality disorder, unspecified (4) Bipolar disorder, unspecified: Status: Acute Code(s): F31.9 - Bipolar disorder, unspecified Plan behavior c/w personality disorder and substance use disorder. not suggestive of danni or psychosis. PTSD Dx likely, but unable to Dx at present. 07/02/25: ativan 2 mg PRN agitation for now. begin to increase interval and decrease dose tomorrow. NRT per pt request. CIWA with ativan for 24H, then DC if not needed, due to report of polysubstance use and poor historian. utox benzo and alcohol NEG, however. comfort meds for opioid withdrawal. urine bupe POS. pt reports last opioids were bupe from detox several weeks ago. supportive care otherwise, attempt to engage and establish rapport moving forward. 07/03/25: more pleasant and less irritable compare to the report yesterday. She has knowledge regarding previous medication trials. States that she was dx with Bipolar at 19 y.o. Buspar for anxiety, caplyta fo rmood, and trazodone for insomnia worked in the past. Requested to restart on it. Denies issues with filling these meds in the past. She denies SI/SIB/HI/AVH. visible, attended groups and coloring with peers in dinning/activities areas. Hx of not consistent with medicaitons. Per nursing, patient was irritable yesterday. Per SW, no current OP sevices, want to return to [place]. She does not want rehab as it was not helpful in the past. Wants sober house. Cannot return or stay with sister. Patient has goals for aftercare but they are not realistic and dnot reachable. Potential discharge to [facility]dc once stable. Discontinue CIWA and Ativan PRN per protocol. Add Bipolar, unspecified on treatment plan. CV- 15 min check. Caplyta 42 mg daily at HS. Ordered place for [facility] pharmacy. Pending result Buspar 10mg BID for anxiety Trazodone 50mg at HS with a RPx1 PRN for insomnia. 07/04: start bactrimn x 3 days for UTI Dxed at [place]. start propranolol 10 TID for anxiety. awaiting caplyta from outpt pharmacy. otherwise continue current mgmt. submitted 3-day notice, comes due next tuesday. Reason for continued inpatient stay Substantial Risk for: harm to self and inability to function Time Spent With Patient Time: Total time managing care of this patient today __25__ minutes.
[2025-07-04] MEDS: CAPLYTA 10.5 EACH PO (16:46)
[2025-07-04 20:00] VITALS: BP 104/68; PULSE 88; RESP 16; TEMP 36.9; O2SAT 99
[2025-07-04 20:27] VITALS: BP 104/68; PULSE 88
[2025-07-05 00:38] VITALS: BP 109/54
[2025-07-05 08:00] VITALS: BP 102/60; PULSE 89; RESP 16; TEMP 37; O2SAT 99
[2025-07-05] MEDS: CAPLYTA 10.5 EACH PO (08:08)
[2025-07-05 08:10] VITALS: BP 102/60; PULSE 89
[2025-07-05] MEDS: Sulfamethox/Trimeth 800/160 TABLET 1 TAB PO ×2 (08:10→21:09)
[2025-07-05] MEDS: Nicotine 21 MG PATCH.TD24 TRANSDERMA (08:11)
--- NOTE | 2025-07-05 10:47 | HO.PSYCHPN ---
Subjective Subjective Date of Service: 07/05/25 Reason For Visit: mental health crisis Interim History: calm, cooperative, pleasant. feels the propranolol is working, caplyta helpful. less irritable. asking for trazodone increase, which is agreed to. does not want any other med changes presently. planning for discharge next week. per staff, 3-day up 12th. wants D/C. tearful. taking meds. slept 5 hours. [facility] [place]. Mental Status Exam Mental Status Exam Narrative: Casual attire, kempt hair, no irritability. pleasant and cooperative. Speech WNL, normal rate, thoughts linear and logical. affect normo-intense, non-labile. mood calm, and cooperative. no SI/SIB/HI/AVH expressed. improved insight and judgment. Diagnostics Vital Signs (24Hr): Vital Signs - 24 hr 07/04/25 14:47 07/04/25 20:00 07/04/25 20:27 Temperature 98.4 F Pulse Rate 90 88 88 Respiratory Rate 16 Blood Pressure 109/60 104/68 104/68 Pulse Oximetry 99 Oxygen Delivery Method Room Air 07/05/25 00:38 07/05/25 08:00 07/05/25 08:10 Temperature 98.6 F Pulse Rate 89 89 Respiratory Rate 16 Blood Pressure 109/54 L 102/60 102/60 Pulse Oximetry 99 Oxygen Delivery Method Room Air Labs 07/03/25 07:37 07/03/25 07:37 Medications Medications Current Medications Acetaminophen (Acetaminophen 325 Mg Tablet) 650 mg PO Q6H PRN PRN Reason: Headache/Pain, Scale 1-10 Al Hydroxide/Mg Hydroxide (Magnesium Hydrox/Alum Hydrox 30 Ml Oral.Susp) 30 ml PO Q6H PRN PRN Reason: Heartburn/Nausea Buspirone HCl (Buspirone Hcl 5 Mg Tablet) 15 mg PO BID DEEJAY Last Admin: 07/05/25 08:09 Dose: 15 mg Clonidine HCl (Clonidine Hcl 0.1 Mg Tablet) 0.1 mg PO Q4H PRN; Protocol PRN Reason: signs of opioid withdrawal, anxiety Last Admin: 07/05/25 00:38 Dose: 0.1 mg Dicyclomine HCl (Dicyclomine Hcl 10 Mg Capsule) 10 mg PO QIDACHS PRN PRN Reason: spasm Ibuprofen (Ibuprofen 600 Mg Tablet) 600 mg PO Q6H PRN PRN Reason: cramps, aches Last Admin: 07/04/25 17:53 Dose: 600 mg Loperamide HCl (Loperamide Hcl 2 Mg Capsule) 2 mg PO Q4H PRN PRN Reason: diarrhea Magnesium Hydroxide (Milk Of Magnesia 30 Ml Oral.Susp) 30 ml PO DAILY PRN PRN Reason: Constipation Nicotine (Nicotine 21 Mg Patch.Td24) 21 mg TRANSDERMA DAILY [facility] Last Admin: 07/05/25 08:11 Dose: 21 mg Nicotine Polacrilex (Nicotine Polacrilex 2 Mg Gum) 4 mg BUCCAL Q2H PRN PRN Reason: Nicotine Cravings Pt Own (Caplyta 10.5 (Mg)) 10.5 mg PO DAILY [facility] Last Admin: 07/05/25 08:08 Dose: 10.5 mg Propranolol HCl (Propranolol Hcl 10 Mg Tablet) 10 mg PO TID [facility]; Protocol Last Admin: 07/05/25 08:10 Dose: 10 mg Trazodone HCl (Trazodone Hcl 50 Mg Tablet) 50 mg PO BEDTIME PRN PRN Reason: Insomnia Last Admin: 07/04/25 22:32 Dose: 50 mg Trazodone HCl (Trazodone Hcl 100 Mg Tablet) 100 mg PO BEDTIME DEEJAY Trimethoprim/Sulfamethoxazole (Sulfamethox/Trimeth 800/160 Tablet) 1 tab PO Q12H [facility] Last Admin: 07/05/25 08:10 Dose: 1 tab Allergies Allergies Allergy/AdvReac Type Severity Reaction Status Date / Time No Known Allergies Allergy Verified 07/02/25 15:07 Assessment & Plan Assessment & Plan (1) Opioid use disorder: Status: Acute Code(s): F11.90 - Opioid use, unspecified, uncomplicated (2) Cocaine use disorder: Status: Acute Code(s): F14.10 - Cocaine abuse, uncomplicated (3) Personality disorder: Status: Acute Code(s): F60.9 - Personality disorder, unspecified (4) Bipolar disorder, unspecified: Status: Acute Code(s): F31.9 - Bipolar disorder, unspecified Plan behavior c/w personality disorder and substance use disorder. not suggestive of danni or psychosis. PTSD Dx likely, but unable to Dx at present. 07/02/25: ativan 2 mg PRN agitation for now. begin to increase interval and decrease dose tomorrow. NRT per pt request. CIWA with ativan for 24H, then DC if not needed, due to report of polysubstance use and poor historian. utox benzo and alcohol NEG, however. comfort meds for opioid withdrawal. urine bupe POS. pt reports last opioids were bupe from detox several weeks ago. supportive care otherwise, attempt to engage and establish rapport moving forward. 07/03/25: more pleasant and less irritable compare to the report yesterday. She has knowledge regarding previous medication trials. States that she was dx with Bipolar at 19 y.o. Buspar for anxiety, caplyta fo rmood, and trazodone for insomnia worked in the past. Requested to restart on it. Denies issues with filling these meds in the past. She denies SI/SIB/HI/AVH. visible, attended groups and coloring with peers in dinning/activities areas. Hx of not consistent with medicaitons. Per nursing, patient was irritable yesterday. Per SW, no current OP sevices, want to return to [place]. She does not want rehab as it was not helpful in the past. Wants sober house. Cannot return or stay with sister. Patient has goals for aftercare but they are not realistic and dnot reachable. Potential discharge to intermediate once stable. Discontinue CIWA and Ativan PRN per protocol. Add Bipolar, unspecified on treatment plan. CV- 15 min check. Caplyta 42 mg daily at HS. Ordered place for [facility] OP pharmacy. Pending result Buspar 10mg BID for anxiety Trazodone 50mg at HS with a RPx1 PRN for insomnia. 07/04: start bactrim x 3 days for UTI Dxed at [place]. start propranolol 10 TID for anxiety. awaiting caplyta from outpt pharmacy. otherwise continue current mgmt. submitted 3-day notice, comes due next tuesday. 07/05: improved, feels caplyta and propranolol are helping her. poor sleep, increase trazodone to 100 at HS. otherwise continue current mgmt. Reason for continued inpatient stay Substantial Risk for: inability to function and rapid decompensation Time Spent With Patient Time: Total time managing care of this patient today __25__ minutes.
[2025-07-05 14:54] VITALS: BP 143/59; PULSE 99; TEMP 36.4; O2SAT 99
[2025-07-05 20:26] VITALS: BP 111/88; PULSE 96; RESP 16; TEMP 37.4; O2SAT 100
[2025-07-06 01:11] VITALS: BP 116/60; PULSE 88
[2025-07-06 07:00] VITALS: BP 96/51; PULSE 80; RESP 20; TEMP 37.1; O2SAT 99
[2025-07-06] MEDS: Nicotine 21 MG PATCH.TD24 TRANSDERMA (09:19)
[2025-07-06] MEDS: CAPLYTA 10.5 EACH PO (09:21)
[2025-07-06] MEDS: Sulfamethox/Trimeth 800/160 TABLET 1 TAB PO ×2 (09:21→22:20)
--- NOTE | 2025-07-06 09:37 | HO.PSYCHPN ---
Subjective Subjective Date of Service: 07/06/25 Reason For Visit: mental health crisis Subjective Notes: Conditional Voluntary and 3 Day Interim History: Patient was seen and discussed in rounds today. Records and plans were reviewed. She continues to be guarded and having periods of agitation. Attending some groups. Eating adequately but sleeping was troubled last night. I asked her whether she wanted me to increase her trazodone but she did not want that. No SI. She is looking forward to 07/09 to be discharged. She does have a 3 day notice in. Review of Systems Review of Systems Yes all other systems are reviewed and are negative Mental Status Exam Mental Status Exam Narrative: In today's visit she is alert, oriented and pleasant. Normal speech. Moderate eye contact. Affect is appropriate and a little irritable. No signs of psychosis. Cognitively is grossly intact. Judgment is intact. Diagnostics Vital Signs (24Hr): Vital Signs - 24 hr 07/05/25 14:54 07/05/25 20:26 07/06/25 01:11 Temperature 97.5 F 99.3 F Pulse Rate 99 96 88 Respiratory Rate 16 Blood Pressure 143/59 H 111/88 116/60 Pulse Oximetry 99 100 Oxygen Delivery Method Room Air 07/06/25 07:00 Temperature 98.7 F Pulse Rate 80 Respiratory Rate 20 Blood Pressure 96/51 L Pulse Oximetry 99 Oxygen Delivery Method Room Air Labs 07/03/25 07:37 07/03/25 07:37 Medications Medications Current Medications Acetaminophen (Acetaminophen 325 Mg Tablet) 650 mg PO Q6H PRN PRN Reason: Headache/Pain, Scale 1-10 Al Hydroxide/Mg Hydroxide (Magnesium Hydrox/Alum Hydrox 30 Ml Oral.Susp) 30 ml PO Q6H PRN PRN Reason: Heartburn/Nausea Buspirone HCl (Buspirone Hcl 5 Mg Tablet) 15 mg PO BID DEEJAY Last Admin: 07/06/25 09:21 Dose: 15 mg Clonidine HCl (Clonidine Hcl 0.1 Mg Tablet) 0.1 mg PO Q4H PRN; Protocol PRN Reason: signs of opioid withdrawal, anxiety Last Admin: 07/06/25 01:12 Dose: 0.1 mg Dicyclomine HCl (Dicyclomine Hcl 10 Mg Capsule) 10 mg PO QIDACHS PRN PRN Reason: spasm Ibuprofen (Ibuprofen 600 Mg Tablet) 600 mg PO Q6H PRN PRN Reason: cramps, aches Last Admin: 07/04/25 17:53 Dose: 600 mg Loperamide HCl (Loperamide Hcl 2 Mg Capsule) 2 mg PO Q4H PRN PRN Reason: diarrhea Magnesium Hydroxide (Milk Of Magnesia 30 Ml Oral.Susp) 30 ml PO DAILY PRN PRN Reason: Constipation Nicotine (Nicotine 21 Mg Patch.Td24) 21 mg TRANSDERMA DAILY [facility] Last Admin: 07/06/25 09:19 Dose: 21 mg Nicotine Polacrilex (Nicotine Polacrilex 2 Mg Gum) 4 mg BUCCAL Q2H PRN PRN Reason: Nicotine Cravings Pt Own (Caplyta 10.5 (Mg)) 10.5 mg PO DAILY [facility] Last Admin: 07/06/25 09:21 Dose: 10.5 mg Propranolol HCl (Propranolol Hcl 10 Mg Tablet) 10 mg PO TID [facility]; Protocol Last Admin: 07/06/25 09:21 Dose: 10 mg Trazodone HCl (Trazodone Hcl 100 Mg Tablet) 100 mg PO BEDTIME [facility] Last Admin: 07/05/25 21:09 Dose: 100 mg Trimethoprim/Sulfamethoxazole (Sulfamethox/Trimeth 800/160 Tablet) 1 tab PO Q12H [facility] Last Admin: 07/06/25 09:21 Dose: 1 tab Allergies Allergies Allergy/AdvReac Type Severity Reaction Status Date / Time No Known Allergies Allergy Verified 07/02/25 15:07 Assessment & Plan Assessment & Plan (1) Opioid use disorder: Status: Acute Code(s): F11.90 - Opioid use, unspecified, uncomplicated (2) Cocaine use disorder: Status: Acute Code(s): F14.10 - Cocaine abuse, uncomplicated (3) Personality disorder: Status: Acute Code(s): F60.9 - Personality disorder, unspecified (4) Bipolar disorder, unspecified: Status: Acute Code(s): F31.9 - Bipolar disorder, unspecified Plan behavior c/w personality disorder and substance use disorder. not suggestive of danni or psychosis. PTSD Dx likely, but unable to Dx at present. 07/02/25: ativan 2 mg PRN agitation for now. begin to increase interval and decrease dose tomorrow. NRT per pt request. CIWA with ativan for 24H, then DC if not needed, due to report of polysubstance use and poor historian. utox benzo and alcohol NEG, however. comfort meds for opioid withdrawal. urine bupe POS. pt reports last opioids were bupe from detox several weeks ago. supportive care otherwise, attempt to engage and establish rapport moving forward. 07/03/25: more pleasant and less irritable compare to the report yesterday. She has knowledge regarding previous medication trials. States that she was dx with Bipolar at 19 y.o. Buspar for anxiety, caplyta fo rmood, and trazodone for insomnia worked in the past. Requested to restart on it. Denies issues with filling these meds in the past. She denies SI/SIB/HI/AVH. visible, attended groups and coloring with peers in dinning/activities areas. Hx of not consistent with medicaitons. Per nursing, patient was irritable yesterday. Per SW, no current OP sevices, want to return to [place]. She does not want rehab as it was not helpful in the past. Wants sober house. Cannot return or stay with sister. Patient has goals for aftercare but they are not realistic and dnot reachable. Potential discharge to jail once stable. Discontinue CIWA and Ativan PRN per protocol. Add Bipolar, unspecified on treatment plan. CV- 15 min check. Caplyta 42 mg daily at HS. Ordered place for [facility] OP pharmacy. Pending result Buspar 10mg BID for anxiety Trazodone 50mg at HS with a RPx1 PRN for insomnia. 07/04: start bactrim x 3 days for UTI Dxed at [place]. start propranolol 10 TID for anxiety. awaiting caplyta from outpt pharmacy. otherwise continue current mgmt. submitted 3-day notice, comes due next tuesday. 07/05: improved, feels caplyta and propranolol are helping her. poor sleep, increase trazodone to 100 at HS. otherwise continue current mgmt. 07/06: Continue current regimen and plans Patient educated on: medication risk/benefits Reason for continued inpatient stay Substantial Risk for: med/psych decompensation Time Spent With Patient Time: Total time managing care of this patient today ____ minutes.
[2025-07-06 20:00] VITALS: BP 119/56; PULSE 89; RESP 16; TEMP 37.2; O2SAT 100
[2025-07-06 22:19] VITALS: BP 128/63; PULSE 95
--- NOTE | 2025-07-07 05:19 | PC.NURSE ---
agitation/mood liability increasing. restless. asking for help. unable to tolerate long conversations, impulsive. psychiatrist notified.
--- NOTE | 2025-07-07 06:04 | PC.NURSE ---
orders obtained. patient is refusing all medications. remains tense, resistive to care offered. ''I'm just holding it together until I can leave'' ''I'm refusing help'' offered time tp process and music but also declining.
[2025-07-07 07:00] VITALS: BP 112/59; PULSE 84; RESP 16; TEMP 36.9; O2SAT 99
[2025-07-07] MEDS: Sulfamethox/Trimeth 800/160 TABLET 1 TAB PO ×2 (07:25→21:57)
--- NOTE | 2025-07-07 07:28 | PC.NURSE ---
Dr. Mckinley bolanos medications to be administered now.
[2025-07-07] MEDS: CAPLYTA 10.5 EACH PO (08:58)
--- NOTE | 2025-07-07 09:26 | P.PNPSI_ITS ---
Subjective Subjective Date of Service: 07/07/25 Reason For Visit: mental health crisis Subjective Notes: Conditional Voluntary and 3 Day Interim History: Patient was seen and discussed in rounds today. Records and plans were reviewed. She continued to have trouble falling sleep and is a little more open to changes. I will increase the trazodone to 150 mg. We discussed maybe trying Seroquel but she states that she gets palpitation from that. She has been a little less labile and more social and visible. Attending groups. No SI. Review of Systems Review of Systems Yes all other systems are reviewed and are negative Mental Status Exam Mental Status Exam Narrative: In today's visit she is alert, oriented and pleasant. Normal speech. Moderate eye contact. Affect is appropriate and less irritable. No signs of psychosis. Cognitively is grossly intact. No SI. Judgment is intact. Diagnostics Vital Signs (24Hr): Vital Signs - 24 hr 07/06/25 20:00 07/06/25 22:19 07/07/25 07:00 Temperature 99 F 98.4 F Pulse Rate 89 95 84 Respiratory Rate 16 16 Blood Pressure 119/56 L 128/63 112/59 L Pulse Oximetry 100 99 Oxygen Delivery Method Room Air Room Air Labs 07/03/25 07:37 07/03/25 07:37 Medications Medications Current Medications Acetaminophen (Acetaminophen 325 Mg Tablet) 650 mg PO Q6H PRN PRN Reason: Headache/Pain, Scale 1-10 Al Hydroxide/Mg Hydroxide (Magnesium Hydrox/Alum Hydrox 30 Ml Oral.Susp) 30 ml PO Q6H PRN PRN Reason: Heartburn/Nausea Buspirone HCl (Buspirone Hcl 5 Mg Tablet) 15 mg PO BID DEEJAY Last Admin: 07/07/25 07:25 Dose: 15 mg Clonidine HCl (Clonidine Hcl 0.1 Mg Tablet) 0.1 mg PO Q4H PRN; Protocol PRN Reason: signs of opioid withdrawal, anxiety Last Admin: 07/06/25 01:12 Dose: 0.1 mg Dicyclomine HCl (Dicyclomine Hcl 10 Mg Capsule) 10 mg PO QIDACHS PRN PRN Reason: spasm Ibuprofen (Ibuprofen 600 Mg Tablet) 600 mg PO Q6H PRN PRN Reason: cramps, aches Last Admin: 07/04/25 17:53 Dose: 600 mg Loperamide HCl (Loperamide Hcl 2 Mg Capsule) 2 mg PO Q4H PRN PRN Reason: diarrhea Magnesium Hydroxide (Milk Of Magnesia 30 Ml Oral.Susp) 30 ml PO DAILY PRN PRN Reason: Constipation Nicotine (Nicotine 21 Mg Patch.Td24) 21 mg TRANSDERMA DAILY [facility] Last Admin: 07/07/25 09:02 Dose: Not Given Nicotine Polacrilex (Nicotine Polacrilex 2 Mg Gum) 4 mg BUCCAL Q2H PRN PRN Reason: Nicotine Cravings Pt Own (Caplyta 10.5 (Mg)) 10.5 mg PO DAILY [facility] Last Admin: 07/07/25 08:58 Dose: 10.5 mg Propranolol HCl (Propranolol Hcl 10 Mg Tablet) 10 mg PO TID [facility]; Protocol Last Admin: 07/07/25 07:25 Dose: 10 mg Trazodone HCl (Trazodone Hcl 100 Mg Tablet) 100 mg PO BEDTIME [facility] Last Admin: 07/06/25 22:21 Dose: 100 mg Trimethoprim/Sulfamethoxazole (Sulfamethox/Trimeth 800/160 Tablet) 1 tab PO Q12H [facility] Last Admin: 07/07/25 07:25 Dose: 1 tab Allergies Allergies Allergy/AdvReac Type Severity Reaction Status Date / Time No Known Allergies Allergy Verified 07/02/25 15:07 Assessment & Plan Assessment & Plan (1) Opioid use disorder: Status: Acute Code(s): F11.90 - Opioid use, unspecified, uncomplicated (2) Cocaine use disorder: Status: Acute Code(s): F14.10 - Cocaine abuse, uncomplicated (3) Personality disorder: Status: Acute Code(s): F60.9 - Personality disorder, unspecified (4) Bipolar disorder, unspecified: Status: Acute Code(s): F31.9 - Bipolar disorder, unspecified Plan behavior c/w personality disorder and substance use disorder. not suggestive of danni or psychosis. PTSD Dx likely, but unable to Dx at present. 07/02/25: ativan 2 mg PRN agitation for now. begin to increase interval and decrease dose tomorrow. NRT per pt request. CIWA with ativan for 24H, then DC if not needed, due to report of polysubstance use and poor historian. utox benzo and alcohol NEG, however. comfort meds for opioid withdrawal. urine bupe POS. pt reports last opioids were bupe from detox several weeks ago. supportive care otherwise, attempt to engage and establish rapport moving forward. 07/03/25: more pleasant and less irritable compare to the report yesterday. She has knowledge regarding previous medication trials. States that she was dx with Bipolar at 19 y.o. Buspar for anxiety, caplyta fo rmood, and trazodone for insomnia worked in the past. Requested to restart on it. Denies issues with filling these meds in the past. She denies SI/SIB/HI/AVH. visible, attended groups and coloring with peers in dinning/activities areas. Hx of not consistent with medicaitons. Per nursing, patient was irritable yesterday. Per SW, no current OP sevices, want to return to [place]. She does not want rehab as it was not helpful in the past. Wants sober house. Cannot return or stay with sister. Patient has goals for aftercare but they are not realistic and dnot reachable. Potential discharge to longterm once stable. Discontinue CIWA and Ativan PRN per protocol. Add Bipolar, unspecified on treatment plan. CV- 15 min check. Caplyta 42 mg daily at HS. Ordered place for [facility] OP pharmacy. Pending result Buspar 10mg BID for anxiety Trazodone 50mg at HS with a RPx1 PRN for insomnia. 07/04: start bactrim x 3 days for UTI Dxed at [place]. start propranolol 10 TID for anxiety. awaiting caplyta from outpt pharmacy. otherwise continue current mgmt. submitted 3-day notice, comes due next tuesday. 07/05: improved, feels caplyta and propranolol are helping her. poor sleep, increase trazodone to 100 at HS. otherwise continue current mgmt. 07/06: Continue current regimen and plans 07/07: Continue current plans and regimen. Increase trazodone to 150 mg nightly Reason for continued inpatient stay Substantial Risk for: med/psych decompensation Time Spent With Patient Time: Total time managing care of this patient today ____ minutes.
[2025-07-07 12:06] VITALS: BP 117/64
[2025-07-07 14:49] VITALS: BP 111/62; PULSE 87
[2025-07-07 17:45] VITALS: BP 103/58
[2025-07-07 19:55] VITALS: BP 103/58; PULSE 88; RESP 16; TEMP 36.4; O2SAT 97
[2025-07-07 21:58] VITALS: BP 94/51; PULSE 76
[2025-07-08 07:05] VITALS: BP 105/53; PULSE 94; RESP 14; TEMP 37.1; O2SAT 97
[2025-07-08] MEDS: CAPLYTA 10.5 EACH PO (08:37)
[2025-07-08] MEDS: Sulfamethox/Trimeth 800/160 TABLET 1 TAB PO ×2 (08:37→19:52)
[2025-07-08 08:38] VITALS: BP 111/64; PULSE 94
--- NOTE | 2025-07-08 13:47 | P.DS_ITS ---
DS: Providers Provider Date of Service: 07/08/25 Date of admission: 07/02/25 14:39 Date of discharge: 07/09/25 Primary care physician: Unknown Physician Consults: 07/02/25 15:07 Consult to Hospitalist Routine Comment: Consulting Provider[place] [facility] Reason For Exam: OSH admission DS: Diagnosis Discharge Diagnosis (1) Opioid use disorder: Status: Acute (2) Cocaine use disorder: Status: Acute (3) Personality disorder: Status: Acute (4) Bipolar disorder, unspecified: Status: Acute DS: Medications Discharge Medications Home Medications: Previous Rx's ?Medication ?Instructions ?Recorded buspirone 5 mg tablet 15 mg (3 x 5 mg) PO BID 30 d ays 07/08/25 #180 tabs lumateperone 10.5 mg capsule 10.5 mg PO DAILY 30 days #30 caps 07/08/25 (Caplyta) nicotine 21 mg/24 hr daily 21 mg transdermal DAILY 28 days 07/08/25 transdermal patch #28 ea propranolol 10 mg tablet 10 mg PO TID 30 days #90 tab s 07/08/25 trazodone 50 mg tablet 150 mg (3 x 50 mg) PO BEDTIM E 30 07/08/25 days #90 tabs Mental Status Exam Mental Status Exam Narrative: Casual attire, kempt hair, no irritability. pleasant and cooperative. Speech WNL, normal rate, thoughts linear and logical. affect normo-intense, non- labile. mood calm, and cooperative. mood better. no SI/SIB/HI/AVH. improved insight and judgment. Data Data Completed and Pending Completed studies during hospitalization [Text1]: 07/03/25 07:37 WBC 7.8 RBC 4.62 Hgb 13.9 Hct 40.2 MCV 87.0 MCH 30.1 MCHC 34.6 RDW 12.4 Plt Count 262 MPV 10.5 Immature Gran % (Auto) 0.3 Neut % (Auto) 58.6 Lymph % (Auto) 32.7 Wheeler % (Auto) 6.4 Eos % (Auto) 1.5 Baso % (Auto) 0.5 Lymph # (Auto) 2.6 Wheeler # (Auto) 0.5 Eos # (Auto) 0.1 Baso # (Auto) 0.0 Abs Immat Gran (auto) 0.02 Absolute Neuts (auto) 4.6 Absolute Nucleated RBC 0.000 Nucleated RBC % (auto) 0.0 Sodium 139 Potassium 4.6 Chloride 106 Carbon Dioxide 26 Anion Gap 12 BUN 13 Creatinine 0.78 Estim Creat Clear Calc TNP Estimated GFR > 60 Random Glucose 96 Estimat Average Glucose 117 Hemoglobin A1c % 5.7 Calcium 9.6 Total Bilirubin 0.4 Direct Bilirubin 0.1 AST 65 H ALT 107 H Alkaline Phosphatase 50 Total Protein 7.3 Albumin 4.4 Triglycerides 78 Cholesterol 153 LDL Cholesterol, Calc 98 HDL Cholesterol 40 L Vitamin B12 487 Folate 9.7 TSH 3.20 Free T4 1.17 DS: Summary Hospital Course Hospital Course: per 07/02 admission note: HPI Narrative: per OSH crisis eval, pt was confronted at a store for shoplifting, PD arrived. pt informed PD that she was very depressed and no one helps her with her depression, so they brought her to ED. she denied SI/HI/AVH in ED. she was apparently generally uncooperative with eval in ED. utox was negative aside from buprenorphine. nevertheless, she was inexplicably found inpatient level of care and [place] [facility]. on admission [place] [facility] [place] was irritable, labile, demanding, and petulant. she threw or kicked items several times in MD's presence, including a small brown bag given to her by the hospital which contained her toiletries, as well as this telegraphic typewriter operator's pen. she refused to answer questions and acted as if interviewers were stupid for asking them. she demanded a shower first and foremost. she requested ativan and nicotine patch. she denied safety concerns. after a broef period she stopped answering MD's questions. Past Psychiatric History: reorts Dx of bipolar, PTSD, ADHD. h/o multiple prior hospitalizations. unknown SA, SIB, outpt Hx. Medical Evaluation Reviewed: Yes PMFSH Narrative: reports NICK Hx - i snore. denies using CPAP: i'm poor. 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 now living in a long-term in [facility]. poor social supports - some support from grandmother. mother in long term. 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 Substance History: reports h/o cocaine, opioid, cannabis use disorder. Trauma History: endorses h/o trauma but will not elaborate. Precis: behavior c/w personality disorder and substance use disorder. not suggestive of danni or psychosis. PTSD Dx likely, but unable to Dx at present. 07/02/25: ativan 2 mg PRN agitation for now. begin to increase interval and decrease dose tomorrow. NRT per pt request. CIWA with ativan for 24H, then DC if not needed, due to report of polysubstance use and poor historian. utox benzo and alcohol NEG, however. comfort meds for opioid withdrawal. urine bupe POS. pt reports last opioids were bupe from detox several weeks ago. supportive care otherwise, attempt to engage and establish rapport moving forward. 07/03/25: more pleasant and less irritable compare to the report yesterday. She has knowledge regarding previous medication trials. States that she was dx with Bipolar at 19 y.o. Buspar for anxiety, caplyta fo rmood, and trazodone for insomnia worked in the past. Requested to restart on it. Denies issues with filling these meds in the past. She denies SI/SIB/HI/AVH. visible, attended groups and coloring with peers in dinning/activities areas. Hx of not consistent with medicaitons. Per nursing, patient was irritable yesterday. Per SW, no current OP sevices, want to return to [place]. She does not want rehab as it was not helpful in the past. Wants sober house. Cannot return or stay with sister. Patient has goals for aftercare but they are not realistic and dnot reachable. Potential discharge to long-term once stable. Discontinue CIWA and Ativan PRN per protocol. Add Bipolar, unspecified on treatment plan. CV- 15 min check. Caplyta 42 mg daily at HS. Ordered place for [facility] [place]. Pending result Buspar 10mg BID for anxiety Trazodone 50mg at HS with a RPx1 PRN for insomnia. 07/04: start bactrim x 3 days for UTI Dxed at [place]. start propranolol 10 TID for anxiety. awaiting caplyta from outpt pharmacy. otherwise continue current mgmt. submitted 3-day notice, comes due next tuesday. 07/05: improved, feels caplyta and propranolol are helping her. poor sleep, increase trazodone to 100 at HS. otherwise continue current mgmt. 07/06: Continue current regimen and plans 07/07: Continue current plans and regimen. Increase trazodone to 150 mg nightly 07/08: [facility]. discharge to care of her sister. no safety concerns. meds reviewed, reconciled, prescribed. 07/09: safe and stable overnight. discharged as per plan. Time Spent with Patient Time attestation: Total time managing care of this patient today __35__ minutes. Discharge Plan Discharge Anticipated Discharge Date/Time: 07/09/25 11:00 Patient Disposition: Home, Self-Care Discharge Diagnosis: Depressive Disorder NOS Cocaine Use Disorder Opioid Use Disorder Referrals: [facility] [Other] - 1 Week Referral Note: Please call to follow up with outpatient services. [facility] [Provider Group] - 1 Week Referral Note: 07-08-25 [facility] was added to patients chart. Please call [phone] to schedule a follow up appt within 7-10 days of discharge. No release or PCP on file. Discharge Medications: New buspirone 5 mg Tablet 15 mg PO BID 30 Days Qty: 180 0RF propranolol 10 mg Tablet 10 mg PO TID 30 Days Qty: 90 0RF Protocol: Hold for SBP/HR < HOLD for SBP < : 90 HOLD for HR < : 60 nicotine 21 mg/24 hr Patch 24 Hour 21 mg transdermal DAILY 28 Days Qty: 28 0RF trazodone 50 mg Tablet 150 mg PO BEDTIME 30 Days Qty: 90 0RF Caplyta 10.5 mg capsule 10.5 mg PO DAILY 30 Days Qty: 30 0RF Discharge Orders: Discharge Order (Routine); Ordered 07/09/25 Ordered By: Cuauhtemoc Mustafa Diet: Advance to usual diet Activity on Discharge: As tolerated Stand Alone Forms: Patient Portal Discharge page, Community Support Print Language: Danish Care Plan Goals: remain safe, stable, and sober in the outpatient treatment setting Health Concerns: none Plan of Treatment: take medications as prescribed. establish mental health and substance abuse treatment in your area. Assessment: not at imminent risk of harm to self or others
--- NOTE | 2025-07-08 14:01 | P.PNPSI_ITS ---
Subjective Subjective Date of Service: 07/08/25 Reason For Visit: mental health crisis Interim History: mood better, no safety concerns. [facility]. slept well on trazodone 150 mg. per staff, some dep/anx. irritable. slept 6 hours. c/o poor sleep over weekend. Mental Status Exam Mental Status Exam Narrative: Casual attire, kempt hair, no irritability. pleasant and cooperative. Speech WNL, normal rate, thoughts linear and logical. affect normo-intense, non- labile. mood calm, and cooperative. mood better. no SI/SIB/HI/AVH. improved insight and judgment. Diagnostics Vital Signs (24Hr): Vital Signs - 24 hr 07/07/25 14:49 07/07/25 17:45 07/07/25 19:55 Temperature 97.5 F Pulse Rate 87 88 Respiratory Rate 16 Blood Pressure 111/62 103/58 L 103/58 L Pulse Oximetry 97 Oxygen Delivery Method Room Air 07/07/25 21:58 07/08/25 07:05 07/08/25 08:38 Temperature 98.7 F Pulse Rate 76 94 94 Respiratory Rate 14 Blood Pressure 94/51 L 105/53 L 111/64 Pulse Oximetry 97 Oxygen Delivery Method Room Air Labs 07/03/25 07:37 07/03/25 07:37 Medications Medications Current Medications Acetaminophen (Acetaminophen 325 Mg Tablet) 650 mg PO Q6H PRN PRN Reason: Headache/Pain, Scale 1-10 Al Hydroxide/Mg Hydroxide (Magnesium Hydrox/Alum Hydrox 30 Ml Oral.Susp) 30 ml PO Q6H PRN PRN Reason: Heartburn/Nausea Buspirone HCl (Buspirone Hcl 5 Mg Tablet) 15 mg PO BID DEEJAY Last Admin: 07/08/25 08:37 Dose: 15 mg Clonidine HCl (Clonidine Hcl 0.1 Mg Tablet) 0.1 mg PO Q4H PRN; Protocol PRN Reason: signs of opioid withdrawal, anxiety Last Admin: 07/07/25 17:45 Dose: 0.1 mg Dicyclomine HCl (Dicyclomine Hcl 10 Mg Capsule) 10 mg PO QIDACHS PRN PRN Reason: spasm Ibuprofen (Ibuprofen 600 Mg Tablet) 600 mg PO Q6H PRN PRN Reason: cramps, aches Last Admin: 07/08/25 08:50 Dose: 600 mg Loperamide HCl (Loperamide Hcl 2 Mg Capsule) 2 mg PO Q4H PRN PRN Reason: diarrhea Magnesium Hydroxide (Milk Of Magnesia 30 Ml Oral.Susp) 30 ml PO DAILY PRN PRN Reason: Constipation Nicotine (Nicotine 21 Mg Patch.Td24) 21 mg TRANSDERMA DAILY [facility] Last Admin: 07/08/25 08:40 Dose: Not Given Nicotine Polacrilex (Nicotine Polacrilex 2 Mg Gum) 4 mg BUCCAL Q2H PRN PRN Reason: Nicotine Cravings Pt Own (Caplyta 10.5 (Mg)) 10.5 mg PO DAILY [facility] Last Admin: 07/08/25 08:37 Dose: 10.5 mg Propranolol HCl (Propranolol Hcl 10 Mg Tablet) 10 mg PO TID [facility]; Protocol Last Admin: 07/08/25 08:38 Dose: 10 mg Trazodone HCl (Trazodone Hcl 50 Mg Tablet) 150 mg PO BEDTIME [facility] Last Admin: 07/07/25 21:58 Dose: 150 mg Trimethoprim/Sulfamethoxazole (Sulfamethox/Trimeth 800/160 Tablet) 1 tab PO Q12H [facility] Last Admin: 07/08/25 08:37 Dose: 1 tab Allergies Allergies Allergy/AdvReac Type Severity Reaction Status Date / Time No Known Allergies Allergy Verified 07/02/25 15:07 Assessment & Plan Assessment & Plan (1) Opioid use disorder: Status: Acute Code(s): F11.90 - Opioid use, unspecified, uncomplicated (2) Cocaine use disorder: Status: Acute Code(s): F14.10 - Cocaine abuse, uncomplicated (3) Personality disorder: Status: Acute Code(s): F60.9 - Personality disorder, unspecified (4) Bipolar disorder, unspecified: Status: Acute Code(s): F31.9 - Bipolar disorder, unspecified Plan behavior c/w personality disorder and substance use disorder. not suggestive of danni or psychosis. PTSD Dx likely, but unable to Dx at present. 07/02/25: ativan 2 mg PRN agitation for now. begin to increase interval and decrease dose tomorrow. NRT per pt request. CIWA with ativan for 24H, then DC if not needed, due to report of polysubstance use and poor historian. utox benzo and alcohol NEG, however. comfort meds for opioid withdrawal. urine bupe POS. pt reports last opioids were bupe from detox several weeks ago. supportive care otherwise, attempt to engage and establish rapport moving forward. 07/03/25: more pleasant and less irritable compare to the report yesterday. She has knowledge regarding previous medication trials. States that she was dx with Bipolar at 19 y.o. Buspar for anxiety, caplyta fo rmood, and trazodone for insomnia worked in the past. Requested to restart on it. Denies issues with filling these meds in the past. She denies SI/SIB/HI/AVH. visible, attended groups and coloring with peers in dinning/activities areas. Hx of not consistent with medicaitons. Per nursing, patient was irritable yesterday. Per SW, no current OP sevices, want to return to [place]. She does not want rehab as it was not helpful in the past. Wants sober house. Cannot return or stay with sister. Patient has goals for aftercare but they are not realistic and dnot reachable. Potential discharge to assisted once stable. Discontinue CIWA and Ativan PRN per protocol. Add Bipolar, unspecified on treatment plan. CV- 15 min check. Caplyta 42 mg daily at HS. Ordered place [place] [facility] [place] Pending result Buspar 10mg BID for anxiety Trazodone 50mg at HS with a RPx1 PRN for insomnia. 07/04: start bactrim x 3 days for UTI Dxed at [place]. start propranolol 10 TID for anxiety. awaiting caplyta from outpt pharmacy. otherwise continue current mgmt. submitted 3-day notice, comes due next tuesday. 07/05: improved, feels caplyta and propranolol are helping her. poor sleep, increase trazodone to 100 at HS. otherwise continue current mgmt. 07/06: Continue current regimen and plans 07/07: Continue current plans and regimen. Increase trazodone to 150 mg nightly. 07/08: slept well on trazodone 150. [facility]. dispo unclear at present, pt contacting her sister. meds reviewed, reconciled, prescribed. denies safety concerns. retracted 3-day notice, but may discharge tomorrow. Reason for continued inpatient stay Substantial Risk for: stable for discharge Time Spent With Patient Time: Total time managing care of this patient today __35__ minutes.
[2025-07-08 15:36] VITALS: BP 98/56; PULSE 82
[2025-07-08 19:52] VITALS: BP 105/59; PULSE 85
[2025-07-08 20:00] VITALS: BP 105/59; PULSE 85; RESP 16; TEMP 36.9; O2SAT 97
[2025-07-09 07:29] VITALS: BP 105/60; PULSE 90; RESP 20; TEMP 36.5; O2SAT 98
[2025-07-09] MEDS: Sulfamethox/Trimeth 800/160 TABLET 1 TAB PO (08:36)
[2025-07-09 08:38] VITALS: BP 100/60; PULSE 105
--- NOTE | 2025-07-09 11:12 | PM.PSYDC ---
DS: Providers Provider Date of Service: 07/09/25 Date of admission: 07/02/25 14:39 Date of discharge: 07/09/25 Primary care physician: Unknown Physician Attending physician on admission: Cuauhtemoc Mustafa Consults: 07/02/25 15:07 Consult to Hospitalist Routine Comment: Consulting Provider: [facility] Reason For Exam: OSH admission Attending physician on discharge: Beth Iniguez DS: Diagnosis Discharge Diagnosis (1) Opioid use disorder: Status: Acute (2) Cocaine use disorder: Status: Acute (3) Personality disorder: Status: Acute (4) Bipolar disorder, unspecified: Status: Acute DS: Medications Discharge Medications Home Medications: Previous Rx's ?Medication ?Instructions ?Recorded buspirone 5 mg tablet 15 mg (3 x 5 mg) PO BID 30 days 07/08/25 #180 tabs lumateperone 10.5 mg capsule 10.5 mg PO DAILY 30 days #30 caps 07/08/25 (Caplyta) nicotine 21 mg/24 hr daily 21 mg transdermal DAILY 28 days 07/08/25 transdermal patch #28 ea propranolol 10 mg tablet 10 mg PO TID 30 days #90 tabs 07/08/25 trazodone 50 mg tablet 150 mg (3 x 50 mg) PO BEDTIME 30 07/08/25 days #90 tabs Data Data Completed and Pending Completed studies during hospitalization [Text1]: 07/03/25 07:37 WBC 7.8 RBC 4.62 Hgb 13.9 Hct 40.2 MCV 87.0 MCH 30.1 MCHC 34.6 RDW 12.4 Plt Count 262 MPV 10.5 Immature Gran % (Auto) 0.3 Neut % (Auto) 58.6 Lymph % (Auto) 32.7 [place] % (Auto) 6.4 Eos % (Auto) 1.5 Baso % (Auto) 0.5 Lymph # (Auto) 2.6 [place] # (Auto) 0.5 Eos # (Auto) 0.1 Baso # (Auto) 0.0 Abs Immat Gran (auto) 0.02 Absolute Neuts (auto) 4.6 Absolute Nucleated RBC 0.000 Nucleated RBC % (auto) 0.0 Sodium 139 Potassium 4.6 Chloride 106 Carbon Dioxide 26 Anion Gap 12 BUN 13 Creatinine 0.78 Estim Creat Clear Calc TNP Estimated GFR > 60 Random Glucose 96 Estimat Average Glucose 117 Hemoglobin A1c % 5.7 Calcium 9.6 Total Bilirubin 0.4 Direct Bilirubin 0.1 AST 65 H ALT 107 H Alkaline Phosphatase 50 Total Protein 7.3 Albumin 4.4 Triglycerides 78 Cholesterol 153 LDL Cholesterol, Calc 98 HDL Cholesterol 40 L Vitamin B12 487 Folate 9.7 TSH 3.20 Free T4 1.17 DS: Summary Hospital Course Hospital Course: per 07/02 admission note: HPI Narrative: per OSH crisis eval, pt was confronted at a store for shoplifting, PD arrived. pt informed PD that she was very depressed and no one helps her with her depression, so they brought her to ED. she denied SI/HI/AVH in ED. she was apparently generally uncooperative with eval in ED. utox was negative aside from buprenorphine. nevertheless, she was inexplicably found inpatient level of care and referred to [facility], which expedited her admission. on admission to [facility] pt was irritable, labile, demanding, and petulant. she threw or kicked items several times in MD's presence, including a small brown bag given to her by the hospital which contained her toiletries, as well as this public relations writer's pen. she refused to answer questions and acted as if interviewers were stupid for asking them. she demanded a shower first and foremost. she requested ativan and nicotine patch. she denied safety concerns. after a broef period she stopped answering MD's questions. Past Psychiatric History: reorts Dx of bipolar, PTSD, ADHD. h/o multiple prior hospitalizations. unknown SA, SIB, outpt Hx. Medical Evaluation Reviewed: Yes [facility] Narrative: reports NICK Hx - i snore. denies using CPAP: i'm poor. 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 now living in a group home in [facility]. poor social supports - some support from grandmother. mother in skilled nursing. 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 Substance History: reports h/o cocaine, opioid, cannabis use disorder. Trauma History: endorses h/o trauma but will not elaborate. Precis: behavior c/w personality disorder and substance use disorder. not suggestive of danni or psychosis. PTSD Dx likely, but unable to Dx at present. 07/02/25: ativan 2 mg PRN agitation for now. begin to increase interval and decrease dose tomorrow. NRT per pt request. CIWA with ativan for 24H, then DC if not needed, due to report of polysubstance use and poor historian. utox benzo and alcohol NEG, however. comfort meds for opioid withdrawal. urine bupe POS. pt reports last opioids were bupe from detox several weeks ago. supportive care otherwise, attempt to engage and establish rapport moving forward. 07/03/25: more pleasant and less irritable compare to the report yesterday. She has knowledge regarding previous medication trials. States that she was dx with Bipolar at 19 y.o. Buspar for anxiety, caplyta fo rmood, and trazodone for insomnia worked in the past. Requested to restart on it. Denies issues with filling these meds in the past. She denies SI/SIB/HI/AVH. visible, attended groups and coloring with peers in dinning/activities areas. Hx of not consistent with medicaitons. Per nursing, patient was irritable yesterday. Per SW, no current OP sevices, want to return to [place]. She does not want rehab as it was not helpful in the past. Wants sober house. Cannot return or stay with sister. Patient has goals for aftercare but they are not realistic and dnot reachable. Potential discharge to group home once stable. Discontinue CIWA and Ativan PRN per protocol. Add Bipolar, unspecified on treatment plan. CV- 15 min check. Caplyta 42 mg daily at HS. Ordered place for [facility] [place]. Pending result Buspar 10mg BID for anxiety Trazodone 50mg at HS with a RPx1 PRN for insomnia. 07/04: start bactrim x 3 days for UTI Dxed at [place]. start propranolol 10 TID for anxiety. awaiting caplyta from outpt pharmacy. otherwise continue current mgmt. submitted 3-day notice, comes due next tuesday. 07/05: improved, feels caplyta and propranolol are helping her. poor sleep, increase trazodone to 100 at HS. otherwise continue current mgmt. 07/06: Continue current regimen and plans 07/07: Continue current plans and regimen. Increase trazodone to 150 mg nightly 07/08: [facility]. discharge to care of her sister. no safety concerns. meds reviewed, reconciled, prescribed. Time Spent with Patient Time attestation: Total time managing care of this patient today ____ minutes. Discharge Plan Discharge Anticipated Discharge Date/Time: 07/09/25 11:00 Patient Disposition: Home, Self-Care Discharge Diagnosis: Depressive Disorder NOS Cocaine Use Disorder Opioid Use Disorder Referrals: [facility] [Provider Group] - 1 Week Referral Note: 07-08-25 [facility] was added to patients chart. Please call [phone] to schedule a follow up appt within 7-10 days of discharge. No release or PCP on file. Discharge Medications: New buspirone 5 mg Tablet 15 mg PO BID 30 Days Qty: 180 0RF propranolol 10 mg Tablet 10 mg PO TID 30 Days Qty: 90 0RF Protocol: Hold for SBP/HR < HOLD for SBP < : 90 HOLD for HR < : 60 nicotine 21 mg/24 hr Patch 24 Hour 21 mg transdermal DAILY 28 Days Qty: 28 0RF trazodone 50 mg Tablet 150 mg PO BEDTIME 30 Days Qty: 90 0RF Caplyta 10.5 mg capsule 10.5 mg PO DAILY 30 Days Qty: 30 0RF Discharge Orders: Discharge Order (Routine); Ordered 07/09/25 Ordered By: Cuauhtemoc Mustafa Diet: Advance to usual diet Activity on Discharge: As tolerated Stand Alone Forms: Patient Portal Discharge page, Community Support Print Language: [place] Care Plan Goals: remain safe, stable, and sober in the outpatient treatment setting Health Concerns: none Plan of Treatment: take medications as prescribed. establish mental health and substance abuse treatment in your area. Assessment: not at imminent risk of harm to self or others
== END 2025-07-09 12:14 | disposition home or self-care (01) | DRG 754 ==
PROVIDERS: Admitting Provider Psychiatry & Neurology Psychiatry; Visit Provider Psychiatry & Neurology Psychiatry
DX: F32.A Depression, unspecified (principal); F11.90 Opioid use, unspecified, uncomplicated; F14.10 Cocaine abuse, uncomplicated; F17.210 Nicotine dependence, cigarettes, uncomplicated; F60.9 Personality disorder, unspecified; Z71.6 Tobacco abuse counseling; Z59.02 Unsheltered homelessness; Z79.899 Other long term (current) drug therapy
CPT/HCPCS: 36415; 80053; 80061; 82248; 82607; 82746; 83036; 84439; 84443; 85025

== ENCOUNTER → 2025-07-02 14:39 | Outpatient (BNV) | payer MEDICAID, SELFPAY | PROVIDERS: Admitting Provider Psychiatry & Neurology Psychiatry; Visit Provider Psychiatry & Neurology Psychiatry | DX: F60.9 Personality disorder, unspecified (principal); F14.10 Cocaine abuse, uncomplicated; F11.90 Opioid use, unspecified, uncomplicated | CPT/HCPCS: 90792 ==

== ENCOUNTER → 2025-07-02 14:39 | Outpatient (BNV) | payer MEDICAID, SELFPAY | PROVIDERS: Admitting Provider Psychiatry & Neurology Psychiatry; Visit Provider Nurse Practitioner Family | DX: F32.A Depression, unspecified (principal) | CPT/HCPCS: 99221 ==